=== PATIENT | male | born 1960 | race Caucasian/White ===

== ENCOUNTER 2020-10-14 09:29 | Inpatient (IN) | payer SELFPAY ==
[2020-10-14 10:51] LABS: #Lymphocytes 0.7 thou/uL (1.20-3.40); #Monocytes 0.3 thou/uL (0.11-0.59); #Neutrophils 9.7 thou/uL (1.40-6.50); %Basophils 0.2 % (0.0-1.0); %Eosinophils 0.1 % (0.0-10.0); %Lymphocytes 6.8 % (21.0-51.0); %Monocytes 3.1 % (0.0-10.0); %Neutrophils 89.8 % (42.0-75.0); Hemoglobin 13.3 g/dL (14.0-18.0); Mean Corpuscular HGB CONC 34.7 g/dL (32.0-36.0); Mean Corpuscular Hemoglobin 30.8 pg (27.0-31.0); Mean Corpuscular Volume 88.6 fL (78.0-98.0); Mean Platelet Volume 8.3 fL (7.4-10.4); Platelet Count 268 thou/uL (130-400); RBC Distribution Width 13.4 % (11.5-14.5); Red Blood Cell (RBC) Count 4.31 mill/uL (4.70-6.10); White Blood Cell (WBC) Count 10.8 thou/uL (4.8-10.8)
[2020-10-14 11:14] LABS: ALT (SGPT) 24 U/L (8-55); AST (SGOT) 64 U/L (5-34); Albumin 3.7 g/dL (3.5-5.0); Alkaline Phosphatase 55 U/L (40-110); Anion Gap 14 mmol/L (10-20); BUN (Urea Nitrogen) 24 mg/dL (8.4-25.7); Bilirubin, Total 0.5 mg/dL (0.2-1.2); Calc. Creatinine Clearance 0 mL/min (70-130); Calcium 9.3 mg/dL (7.8-10.44); Carbon Dioxide 22 mmol/L (22-29); Chloride 107 mmol/L (98-107); Globulin 3.6 g/dL (2.4-3.5); Glucose 147 mg/dL (70-105); Magnesium 2.4 mg/dL (1.6-2.6); Potassium 4.3 mmol/L (3.5-5.1); Protein, Total 7.3 g/dL (6.0-8.3); Sodium 139 mmol/L (136-145)
[2020-10-14] MEDS ORDERED: Dexamethasone 10 MG/ML VIAL ONE (11:51)
[2020-10-14 12:07] LABS: Analyzer IN Cardio ER; Base Excess (BEa) -2.3 mEq/L (-2.0 to +3.0); CO2 Tension 28.3 mmHg (35.0-45.0); Calcium, Ionized (arterial) 1.23 mmol/L (1.12-1.30); Carboxyhemoglobin (COHb) 0.3 gm% (0.0-3.0); Potassium - ABG Lab 4.01 mmol/L (3.70-5.30); pH, Arterial 7.47 (7.35-7.45)
[2020-10-14 12:12] LABS: ALV-art Gradient 408.725 mmHg (0-20); Puncture Site LRA
[2020-10-14] MEDS ORDERED: Ondansetron PF 4 MG/2 ML Vial IVP PRN (14:33)
[2020-10-14] MEDS ORDERED: Acetaminophen 650 MG Suppository PR PRN (14:33)
[2020-10-14] MEDS ORDERED: Ondansetron ODT 4 MG TAB PO PRN (14:33)
[2020-10-14] MEDS ORDERED: Acetaminophen 325 MG TAB PO PRN (14:33)
[2020-10-14] MEDS ORDERED: Melatonin 3 MG TAB PO PRN (14:37)
[2020-10-14] MEDS ORDERED: REMDESIVIR 200 MG in Sodium Chloride 0.9% 250 ML 210 ML IV SCH (14:45)
[2020-10-14] MEDS ORDERED: Albuterol 200 PUFF (6.7GM INHALER) ONE (15:07)
[2020-10-14] MEDS: Albuterol 200 PUFF (6.7GM INHALER) INH SCH ×3 (15:17→22:35)
[2020-10-14] MEDS ORDERED: Electrolyte Replacement Protocol 1 EACH FS SCH (20:15)
[2020-10-14] MEDS ORDERED: Zinc Sulfate 220 MG CAP PO SCH (21:00)
[2020-10-14] MEDS ORDERED: Enoxaparin Sodium 40 MG/0.4 ML SYRINGE SC SCH (21:00)
[2020-10-14] MEDS ORDERED: Ascorbic Acid 500 mg Chewable Tablet PO SCH (21:00)
[2020-10-14] MEDS ORDERED: Colchicine 0.6 MG TAB PO SCH (21:00)
[2020-10-14] MEDS ORDERED: Fenofibrate Nanocrystallized 145 MG TAB PO SCH (21:00)
[2020-10-14] MEDS ORDERED: Multivit, Therapeutic 1 TAB PO SCH (21:00)
[2020-10-14] MEDS ORDERED: Amlodipine 5 MG TAB PO SCH (21:00)
[2020-10-14] MEDS ORDERED: REMDESIVIR 100 MG in Sodium Chloride 0.9% 250 ML 230 ML IV SCH (22:00)
[2020-10-14] MEDS: Famotidine 20 MG TAB PO SCH (22:34)
[2020-10-14] MEDS: Atorvastatin Calcium 40 MG TAB PO SCH (22:35)
[2020-10-15] MEDS: Albuterol 200 PUFF (6.7GM INHALER) INH SCH ×6 (02:52→20:17)
[2020-10-15 05:19] LABS: #Monocytes 0.8 thou/uL (0.11-0.59); #Neutrophils 16.7 thou/uL (1.40-6.50); %Lymphocytes 5.3 % (21.0-51.0); %Monocytes 4.4 % (0.0-10.0); %Neutrophils 90.3 % (42.0-75.0); Hemoglobin 12.8 g/dL (14.0-18.0); Mean Corpuscular HGB CONC 32.1 g/dL (32.0-36.0); Mean Corpuscular Hemoglobin 28.8 pg (27.0-31.0); Mean Corpuscular Volume 89.7 fL (78.0-98.0); Mean Platelet Volume 8.1 fL (7.4-10.4); Platelet Count 322 thou/uL (130-400); RBC Distribution Width 13.5 % (11.5-14.5); Red Blood Cell (RBC) Count 4.45 mill/uL (4.70-6.10); White Blood Cell (WBC) Count 18.5 thou/uL (4.8-10.8)
[2020-10-15 05:41] LABS: Anion Gap 14 mmol/L (10-20); BUN (Urea Nitrogen) 31 mg/dL (8.4-25.7); Calc. Creatinine Clearance 93 mL/min (70-130); Calcium 9.5 mg/dL (7.8-10.44); Carbon Dioxide 23 mmol/L (22-29); Chloride 106 mmol/L (98-107); Glucose 144 mg/dL (70-105); Potassium 4.2 mmol/L (3.5-5.1); Sodium 139 mmol/L (136-145)
[2020-10-15] MEDS ORDERED: hydrALAZINE 20 MG/ML VIAL SLOW IVP PRN (07:56)
[2020-10-15] MEDS ORDERED: Hydrocerin (Eucerin) Cream 120 gm Jar TOP PRN (07:56)
[2020-10-15] MEDS ORDERED: Senokot S 8.6-50 MG TAB PO PRN (07:56)
[2020-10-15] MEDS ORDERED: Cepastat Lozenges 1 LOZ PO PRN (07:56)
[2020-10-15] MEDS ORDERED: Loperamide HCl 2 MG CAP PO PRN (07:56)
[2020-10-15] MEDS ORDERED: Bisacodyl 5 MG TAB PO PRN (07:56)
[2020-10-15] MEDS ORDERED: HYDROcodone/Acetaminophen 5/325 mg Tablet PO PRN (07:56)
[2020-10-15] MEDS ORDERED: Calcium Carbonate 500 MG ChewTAB PO PRN (07:56)
[2020-10-15] MEDS ORDERED: Loratadine 10 MG TAB PO PRN (07:56)
[2020-10-15] MEDS ORDERED: Artificial Tear Sol 15 ML BOT EA EYE PRN (07:56)
[2020-10-15] MEDS ORDERED: Sodium Chloride 0.65% Nasal 44 ML BOT EA NARE PRN (07:56)
[2020-10-15] MEDS ORDERED: Dexamethasone 4 MG TAB PO SCH (08:00)
[2020-10-15] MEDS ORDERED: Dexamethasone 4 mg/ml Vial SLOW IVP SCH (09:00)
[2020-10-15] MEDS: Fenofibrate Nanocrystallized 145 MG TAB PO SCH (09:05)
[2020-10-15] MEDS: Ascorbic Acid 500 mg Chewable Tablet PO SCH (09:05)
[2020-10-15] MEDS: Multivit, Therapeutic 1 TAB PO SCH (09:06)
[2020-10-15] MEDS: Famotidine 20 MG TAB PO SCH ×2 (09:06→20:09)
[2020-10-15] MEDS: PHOS-NAK 1 PKT PACK PO SCH ×2 (09:06→12:38)
[2020-10-15] MEDS: Colchicine 0.6 MG TAB PO SCH (09:06)
[2020-10-15] MEDS: Zinc Sulfate 220 MG CAP PO SCH (09:07)
[2020-10-15] MEDS: Amlodipine 5 MG TAB PO SCH (09:07)
[2020-10-15] MEDS: Ivermectin 3 MG TAB PO SCH (12:41)
[2020-10-15] MEDS: Enoxaparin Sodium 40 MG/0.4 ML SYRINGE SC SCH (20:08)
[2020-10-15] MEDS: Atorvastatin Calcium 40 MG TAB PO SCH (20:09)
[2020-10-15] MEDS: Dexamethasone 4 mg/ml Vial SLOW IVP SCH (20:10)
[2020-10-16] MEDS: Albuterol 200 PUFF (6.7GM INHALER) INH SCH ×6 (02:47→22:49)
[2020-10-16 05:42] LABS: Band 12 % (5-11); Hemoglobin 12.8 g/dL (14.0-18.0); Hypochromia SLIGHT = 6-15 cells (100X) (0-5/hpf); Lymphocytes 6 % (21-51); MDiff Complete? YES; Mean Corpuscular HGB CONC 33.4 g/dL (32.0-36.0); Mean Corpuscular Hemoglobin 29.8 pg (27.0-31.0); Mean Corpuscular Volume 89.3 fL (78.0-98.0); Mean Platelet Volume 7.8 fL (7.4-10.4); Monocytes 8 % (0-10); Neutrophil 74 % (42-75); Platelet Count 384 thou/uL (130-400); Platelet Morphology Comment Appears Adequate; RBC Distribution Width 13.5 % (11.5-14.5); Red Blood Cell (RBC) Count 4.28 mill/uL (4.70-6.10); White Blood Cell (WBC) Count 19.4 thou/uL (4.8-10.8)
[2020-10-16 05:51] LABS: Anion Gap 12 mmol/L (10-20); BUN (Urea Nitrogen) 30 mg/dL (8.4-25.7); CRP (Inflammatory) 1.55 mg/dL (= or < 0.5); Calc. Creatinine Clearance 98 mL/min (70-130); Calcium 9.1 mg/dL (7.8-10.44); Carbon Dioxide 28 mmol/L (22-29); Chloride 106 mmol/L (98-107); Glucose 123 mg/dL (70-105); Potassium 4.3 mmol/L (3.5-5.1); Sodium 142 mmol/L (136-145)
[2020-10-16] MEDS: Fenofibrate Nanocrystallized 145 MG TAB PO SCH (07:42)
[2020-10-16] MEDS: Enoxaparin Sodium 40 MG/0.4 ML SYRINGE SC SCH ×2 (07:43→19:47)
[2020-10-16] MEDS: Ascorbic Acid 500 mg Chewable Tablet PO SCH (07:43)
[2020-10-16] MEDS: Amlodipine 5 MG TAB PO SCH (07:44)
[2020-10-16] MEDS: Colchicine 0.6 MG TAB PO SCH (07:44)
[2020-10-16] MEDS: Multivit, Therapeutic 1 TAB PO SCH (07:44)
[2020-10-16] MEDS: Famotidine 20 MG TAB PO SCH ×2 (07:44→19:47)
[2020-10-16] MEDS: Dexamethasone 4 mg/ml Vial SLOW IVP SCH ×2 (07:45→19:48)
[2020-10-16] MEDS: Zinc Sulfate 220 MG CAP PO SCH (07:45)
[2020-10-16] MEDS: Ivermectin 3 MG TAB PO SCH (11:20)
[2020-10-16] MEDS: Atorvastatin Calcium 40 MG TAB PO SCH (19:48)
[2020-10-17] MEDS: Albuterol 200 PUFF (6.7GM INHALER) INH SCH ×5 (04:14→17:36)
[2020-10-17 05:34] LABS: Hemoglobin 12.8 g/dL (14.0-18.0); Mean Corpuscular HGB CONC 33.5 g/dL (32.0-36.0); Mean Corpuscular Hemoglobin 29.9 pg (27.0-31.0); Mean Corpuscular Volume 89.3 fL (78.0-98.0); Mean Platelet Volume 7.7 fL (7.4-10.4); Platelet Count 398 thou/uL (130-400); RBC Distribution Width 13.5 % (11.5-14.5); Red Blood Cell (RBC) Count 4.29 mill/uL (4.70-6.10); White Blood Cell (WBC) Count 18.8 thou/uL (4.8-10.8)
[2020-10-17 05:44] LABS: Anion Gap 11 mmol/L (10-20); BUN (Urea Nitrogen) 31 mg/dL (8.4-25.7); CRP (Inflammatory) 0.65 mg/dL (= or < 0.5); Calc. Creatinine Clearance 116 mL/min (70-130); Calcium 8.8 mg/dL (7.8-10.44); Carbon Dioxide 26 mmol/L (22-29); Chloride 108 mmol/L (98-107); Glucose 128 mg/dL (70-105); Potassium 4.5 mmol/L (3.5-5.1); Sodium 140 mmol/L (136-145)
[2020-10-17 08:01] LABS: Band 6 % (5-11); Lymphocytes 5 % (21-51); Monocytes 3 % (0-10); Myelocyte 1 % (0-0); Neutrophil 83 % (42-75); Reactive Lymphocytes 2 % (0-10)
[2020-10-17 08:02] LABS: MDiff Complete? YES; Nucleated RBC 1 % (0); Platelet Morphology Comment Appears Adequate
[2020-10-17] MEDS: Famotidine 20 MG TAB PO SCH ×2 (08:43→20:37)
[2020-10-17] MEDS: Amlodipine 5 MG TAB PO SCH (08:43)
[2020-10-17] MEDS: Multivit, Therapeutic 1 TAB PO SCH (08:43)
[2020-10-17] MEDS: Enoxaparin Sodium 40 MG/0.4 ML SYRINGE SC SCH ×2 (08:43→20:37)
[2020-10-17] MEDS: Fenofibrate Nanocrystallized 145 MG TAB PO SCH (08:43)
[2020-10-17] MEDS: Zinc Sulfate 220 MG CAP PO SCH (08:43)
[2020-10-17] MEDS: Ascorbic Acid 500 mg Chewable Tablet PO SCH (08:43)
[2020-10-17] MEDS: Colchicine 0.6 MG TAB PO SCH (08:55)
[2020-10-17] MEDS: Dexamethasone 4 mg/ml Vial SLOW IVP SCH ×2 (08:56→20:38)
[2020-10-17] MEDS: Ivermectin 3 MG TAB PO SCH (11:37)
[2020-10-17] MEDS: Atorvastatin Calcium 40 MG TAB PO SCH (20:37)
[2020-10-18] MEDS: Albuterol 200 PUFF (6.7GM INHALER) INH SCH ×7 (00:26→23:00)
[2020-10-18] MEDS: Famotidine 20 MG TAB PO SCH ×2 (08:09→20:31)
[2020-10-18] MEDS: Multivit, Therapeutic 1 TAB PO SCH (08:09)
[2020-10-18] MEDS: Fenofibrate Nanocrystallized 145 MG TAB PO SCH (08:09)
[2020-10-18] MEDS: Zinc Sulfate 220 MG CAP PO SCH (08:09)
[2020-10-18] MEDS: Amlodipine 5 MG TAB PO SCH (08:09)
[2020-10-18] MEDS: Ascorbic Acid 500 mg Chewable Tablet PO SCH (08:09)
[2020-10-18] MEDS: Colchicine 0.6 MG TAB PO SCH (08:09)
[2020-10-18] MEDS: Dexamethasone 4 mg/ml Vial SLOW IVP SCH ×2 (08:10→20:32)
[2020-10-18] MEDS: Enoxaparin Sodium 40 MG/0.4 ML SYRINGE SC SCH ×2 (08:10→20:31)
[2020-10-18] MEDS: Ivermectin 3 MG TAB PO SCH (11:28)
[2020-10-18] MEDS: Atorvastatin Calcium 40 MG TAB PO SCH (20:31)
[2020-10-18] MEDS: Albuterol 200 PUFF (6.7GM INHALER) INH PRN (20:31)
[2020-10-19] MEDS: Benzonatate 100 MG CAP PO PRN (04:31)
[2020-10-19] MEDS: GUAIFENESIN SF SOLN 200 MG/10 ML UDCUP PO PRN (04:31)
[2020-10-19] MEDS: Albuterol 200 PUFF (6.7GM INHALER) INH PRN (04:31)
[2020-10-19] MEDS: Albuterol 200 PUFF (6.7GM INHALER) INH SCH ×6 (04:31→21:09)
[2020-10-19] MEDS: Enoxaparin Sodium 40 MG/0.4 ML SYRINGE SC SCH ×2 (07:59→21:09)
[2020-10-19] MEDS: Multivit, Therapeutic 1 TAB PO SCH (07:59)
[2020-10-19] MEDS: Colchicine 0.6 MG TAB PO SCH (07:59)
[2020-10-19] MEDS: Famotidine 20 MG TAB PO SCH ×2 (07:59→21:08)
[2020-10-19] MEDS: Ascorbic Acid 500 mg Chewable Tablet PO SCH (07:59)
[2020-10-19] MEDS: Fenofibrate Nanocrystallized 145 MG TAB PO SCH (07:59)
[2020-10-19] MEDS: Zinc Sulfate 220 MG CAP PO SCH (07:59)
[2020-10-19] MEDS: Amlodipine 5 MG TAB PO SCH (07:59)
[2020-10-19] MEDS: Dexamethasone 4 mg/ml Vial SLOW IVP SCH ×2 (08:00→21:21)
[2020-10-19] MEDS ORDERED: Furosemide 20 MG/2 ML VIAL SLOW IVP SCH (11:53)
[2020-10-19] MEDS: cefTRIAXone\\ROCEPHIN 1 GM in Sodium Chloride 0.9% 100 ML IVPB SCH (12:37)
[2020-10-19] MEDS: Doxycycline 100 MG CAP PO SCH (21:08)
[2020-10-19] MEDS: Atorvastatin Calcium 40 MG TAB PO SCH (21:08)
[2020-10-19] MEDS: Dexamethasone 10 MG/ML VIAL SLOW IVP SCH (22:10)
[2020-10-20] MEDS: Albuterol 200 PUFF (6.7GM INHALER) INH SCH ×6 (05:23→23:05)
[2020-10-20 05:36] LABS: ALT (SGPT) 28 U/L (8-55); AST (SGOT) 34 U/L (5-34); Albumin 3.4 g/dL (3.5-5.0); Alkaline Phosphatase 115 U/L (40-110); Anion Gap 14 mmol/L (10-20); BUN (Urea Nitrogen) 26 mg/dL (8.4-25.7); Bilirubin, Total 0.7 mg/dL (0.2-1.2); CRP (Inflammatory) 0.86 mg/dL (= or < 0.5); Calc. Creatinine Clearance 115 mL/min (70-130); Calcium 9.3 mg/dL (7.8-10.44); Carbon Dioxide 22 mmol/L (22-29); Chloride 106 mmol/L (98-107); Globulin 3.3 g/dL (2.4-3.5); Glucose 127 mg/dL (70-105); Potassium 4.7 mmol/L (3.5-5.1); Protein, Total 6.7 g/dL (6.0-8.3); Sodium 137 mmol/L (136-145)
[2020-10-20 06:50] LABS: Band 16 % (5-11); Hemoglobin 13.9 g/dL (14.0-18.0); Lymphocytes 4 % (21-51); MDiff Complete? YES; Mean Corpuscular HGB CONC 32.5 g/dL (32.0-36.0); Mean Platelet Volume 7.2 fL (7.4-10.4); Neutrophil 79 % (42-75); Platelet Count 373 thou/uL (130-400); RBC Distribution Width 13.7 % (11.5-14.5); Reactive Lymphocytes 1 % (0-10); Red Blood Cell (RBC) Count 4.78 mill/uL (4.70-6.10); White Blood Cell (WBC) Count 20.7 thou/uL (4.8-10.8)
[2020-10-20] MEDS: Multivit, Therapeutic 1 TAB PO SCH (09:41)
[2020-10-20] MEDS: Fenofibrate Nanocrystallized 145 MG TAB PO SCH (09:41)
[2020-10-20] MEDS: Amlodipine 5 MG TAB PO SCH (09:41)
[2020-10-20] MEDS: Ascorbic Acid 500 mg Chewable Tablet PO SCH (09:41)
[2020-10-20] MEDS: Colchicine 0.6 MG TAB PO SCH (09:41)
[2020-10-20] MEDS: Doxycycline 100 MG CAP PO SCH ×2 (09:41→21:12)
[2020-10-20] MEDS: Famotidine 20 MG TAB PO SCH ×2 (09:41→21:12)
[2020-10-20] MEDS: Dexamethasone 10 MG/ML VIAL SLOW IVP SCH ×2 (09:42→21:13)
[2020-10-20] MEDS: Enoxaparin Sodium 40 MG/0.4 ML SYRINGE SC SCH ×2 (09:42→21:12)
[2020-10-20] MEDS: Zinc Sulfate 220 MG CAP PO SCH (09:42)
[2020-10-20] MEDS: cefTRIAXone\\ROCEPHIN 1 GM in Sodium Chloride 0.9% 100 ML IVPB SCH (11:53)
[2020-10-20] MEDS: Albuterol 200 PUFF (6.7GM INHALER) INH PRN (17:30)
[2020-10-20] MEDS: Atorvastatin Calcium 40 MG TAB PO SCH (21:12)
[2020-10-21] MEDS: Albuterol 200 PUFF (6.7GM INHALER) INH SCH ×5 (06:37→20:23)
[2020-10-21] MEDS: Famotidine 20 MG TAB PO SCH ×2 (08:18→20:29)
[2020-10-21] MEDS: Zinc Sulfate 220 MG CAP PO SCH (08:18)
[2020-10-21] MEDS: Multivit, Therapeutic 1 TAB PO SCH (08:18)
[2020-10-21] MEDS: Colchicine 0.6 MG TAB PO SCH (08:18)
[2020-10-21] MEDS: Doxycycline 100 MG CAP PO SCH ×2 (08:18→20:29)
[2020-10-21] MEDS: Enoxaparin Sodium 40 MG/0.4 ML SYRINGE SC SCH ×2 (08:18→20:24)
[2020-10-21] MEDS: Ascorbic Acid 500 mg Chewable Tablet PO SCH (08:18)
[2020-10-21] MEDS: Fenofibrate Nanocrystallized 145 MG TAB PO SCH (08:18)
[2020-10-21] MEDS: Amlodipine 5 MG TAB PO SCH (08:18)
[2020-10-21] MEDS: Dexamethasone 10 MG/ML VIAL SLOW IVP SCH ×2 (08:19→20:25)
[2020-10-21] MEDS: cefTRIAXone\\ROCEPHIN 1 GM in Sodium Chloride 0.9% 100 ML IVPB SCH (12:46)
[2020-10-21] MEDS: Atorvastatin Calcium 40 MG TAB PO SCH (20:29)
[2020-10-22] MEDS: Albuterol 200 PUFF (6.7GM INHALER) INH SCH ×7 (01:19→23:03)
[2020-10-22 05:01] LABS: Hemoglobin 14.1 g/dL (14.0-18.0); Mean Corpuscular HGB CONC 33.2 g/dL (32.0-36.0); Mean Corpuscular Hemoglobin 29.5 pg (27.0-31.0); Mean Corpuscular Volume 88.9 fL (78.0-98.0); Mean Platelet Volume 8.2 fL (7.4-10.4); Platelet Count 261 thou/uL (130-400); RBC Distribution Width 13.5 % (11.5-14.5); Red Blood Cell (RBC) Count 4.79 mill/uL (4.70-6.10); White Blood Cell (WBC) Count 23.6 thou/uL (4.8-10.8)
[2020-10-22 05:10] LABS: Anion Gap 13 mmol/L (10-20); BUN (Urea Nitrogen) 34 mg/dL (8.4-25.7); CRP (Inflammatory) 0.62 mg/dL (= or < 0.5); Calc. Creatinine Clearance 116 mL/min (70-130); Carbon Dioxide 22 mmol/L (22-29); Chloride 106 mmol/L (98-107); Glucose 131 mg/dL (70-105); Potassium 4.7 mmol/L (3.5-5.1); Sodium 136 mmol/L (136-145)
[2020-10-22 06:06] LABS: Band 13 % (5-11); Lymphocytes 3 % (21-51); MDiff Complete? YES; Monocytes 1 % (0-10); Neutrophil 83 % (42-75); Nucleated RBC 1 % (0)
[2020-10-22] MEDS: Ascorbic Acid 500 mg Chewable Tablet PO SCH (08:30)
[2020-10-22] MEDS: Multivit, Therapeutic 1 TAB PO SCH (08:31)
[2020-10-22] MEDS: Famotidine 20 MG TAB PO SCH ×2 (08:31→21:20)
[2020-10-22] MEDS: Fenofibrate Nanocrystallized 145 MG TAB PO SCH (08:31)
[2020-10-22] MEDS: Doxycycline 100 MG CAP PO SCH ×2 (08:31→21:19)
[2020-10-22] MEDS: Dexamethasone 10 MG/ML VIAL SLOW IVP SCH ×2 (08:32→21:56)
[2020-10-22] MEDS: Amlodipine 5 MG TAB PO SCH (08:32)
[2020-10-22] MEDS: Zinc Sulfate 220 MG CAP PO SCH (08:32)
[2020-10-22] MEDS: Enoxaparin Sodium 40 MG/0.4 ML SYRINGE SC SCH ×2 (08:32→21:19)
[2020-10-22] MEDS: Colchicine 0.6 MG TAB PO SCH (08:32)
[2020-10-22] MEDS ORDERED: ALPRAZolam 0.25 MG TAB PO PRN (12:37)
[2020-10-22] MEDS: cefTRIAXone\\ROCEPHIN 1 GM in Sodium Chloride 0.9% 100 ML IVPB SCH (13:29)
[2020-10-22] MEDS: ALPRAZolam 0.25 MG TAB PO PRN (21:20)
[2020-10-23] MEDS: Albuterol 200 PUFF (6.7GM INHALER) INH SCH ×6 (03:21→23:32)
[2020-10-23 06:33] LABS: Hemoglobin 14.9 g/dL (14.0-18.0); Mean Corpuscular Hemoglobin 30.1 pg (27.0-31.0); Mean Corpuscular Volume 88.6 fL (78.0-98.0); Mean Platelet Volume 8.4 fL (7.4-10.4); Platelet Count 227 thou/uL (130-400); RBC Distribution Width 13.5 % (11.5-14.5); Red Blood Cell (RBC) Count 4.93 mill/uL (4.70-6.10); White Blood Cell (WBC) Count 23.7 thou/uL (4.8-10.8)
[2020-10-23 06:51] LABS: Anion Gap 12 mmol/L (10-20); BUN (Urea Nitrogen) 34 mg/dL (8.4-25.7); Calc. Creatinine Clearance 123 mL/min (70-130); Calcium 9.1 mg/dL (7.8-10.44); Carbon Dioxide 24 mmol/L (22-29); Chloride 106 mmol/L (98-107); Glucose 102 mg/dL (70-105); Magnesium 2.4 mg/dL (1.6-2.6); Phosphorus 3.6 mg/dL (2.3-4.7); Potassium 4.6 mmol/L (3.5-5.1); Sodium 137 mmol/L (136-145)
[2020-10-23 07:09] LABS: Band 8 % (5-11); Lymphocytes 5 % (21-51); MDiff Complete? YES; Monocytes 1 % (0-10); Neutrophil 85 % (42-75); Platelet Morphology Comment Appears Adequate; RBC Morphology Normal; Reactive Lymphocytes 1 % (0-10)
[2020-10-23] MEDS: Famotidine 20 MG TAB PO SCH ×2 (08:00→20:40)
[2020-10-23] MEDS: Doxycycline 100 MG CAP PO SCH ×2 (08:00→20:59)
[2020-10-23] MEDS: Ascorbic Acid 500 mg Chewable Tablet PO SCH (08:00)
[2020-10-23] MEDS: Fenofibrate Nanocrystallized 145 MG TAB PO SCH (08:00)
[2020-10-23] MEDS: Multivit, Therapeutic 1 TAB PO SCH (08:01)
[2020-10-23] MEDS: Zinc Sulfate 220 MG CAP PO SCH (08:01)
[2020-10-23] MEDS: Enoxaparin Sodium 40 MG/0.4 ML SYRINGE SC SCH ×2 (08:01→20:39)
[2020-10-23] MEDS: Colchicine 0.6 MG TAB PO SCH (08:01)
[2020-10-23] MEDS: Dexamethasone 10 MG/ML VIAL SLOW IVP SCH ×2 (08:02→20:39)
[2020-10-23] MEDS: Amlodipine 5 MG TAB PO SCH (08:02)
[2020-10-23] MEDS: cefTRIAXone\\ROCEPHIN 1 GM in Sodium Chloride 0.9% 100 ML IVPB SCH (11:49)
[2020-10-23] MEDS: ALPRAZolam 0.25 MG TAB PO PRN (20:38)
[2020-10-23] MEDS: Atorvastatin Calcium 40 MG TAB PO SCH (20:39)
[2020-10-24] MEDS: Albuterol 200 PUFF (6.7GM INHALER) INH SCH ×5 (02:44→19:19)
[2020-10-24 04:17] LABS: Anion Gap 14 mmol/L (10-20); BUN (Urea Nitrogen) 32 mg/dL (8.4-25.7); Calc. Creatinine Clearance 119 mL/min (70-130); Calcium 9.1 mg/dL (7.8-10.44); Carbon Dioxide 21 mmol/L (22-29); Chloride 105 mmol/L (98-107); Glucose 114 mg/dL (70-105); Potassium 4.6 mmol/L (3.5-5.1); Sodium 135 mmol/L (136-145)
[2020-10-24 04:53] LABS: Band 3 % (5-11); Hemoglobin 14.3 g/dL (14.0-18.0); Lymphocytes 2 % (21-51); MDiff Complete? YES; Mean Corpuscular HGB CONC 34.3 g/dL (32.0-36.0); Mean Corpuscular Hemoglobin 30.5 pg (27.0-31.0); Mean Corpuscular Volume 88.7 fL (78.0-98.0); Mean Platelet Volume 8.7 fL (7.4-10.4); Monocytes 1 % (0-10); Myelocyte 1 % (0-0); Neutrophil 93 % (42-75); Platelet Count 239 thou/uL (130-400); Platelet Morphology Comment Appears Adequate; RBC Distribution Width 13.7 % (11.5-14.5); RBC Morphology Normal; Red Blood Cell (RBC) Count 4.68 mill/uL (4.70-6.10); White Blood Cell (WBC) Count 25.4 thou/uL (4.8-10.8)
[2020-10-24] MEDS: Fenofibrate Nanocrystallized 145 MG TAB PO SCH (07:30)
[2020-10-24] MEDS: Doxycycline 100 MG CAP PO SCH ×2 (07:31→21:34)
[2020-10-24] MEDS: Multivit, Therapeutic 1 TAB PO SCH (07:31)
[2020-10-24] MEDS: Ascorbic Acid 500 mg Chewable Tablet PO SCH (07:31)
[2020-10-24] MEDS: Colchicine 0.6 MG TAB PO SCH (07:32)
[2020-10-24] MEDS: Amlodipine 5 MG TAB PO SCH (07:32)
[2020-10-24] MEDS: Enoxaparin Sodium 40 MG/0.4 ML SYRINGE SC SCH ×2 (07:32→21:33)
[2020-10-24] MEDS: Dexamethasone 10 MG/ML VIAL SLOW IVP SCH ×2 (07:33→21:34)
[2020-10-24] MEDS: Zinc Sulfate 220 MG CAP PO SCH (07:33)
[2020-10-24] MEDS: Famotidine 20 MG TAB PO SCH ×2 (07:33→21:34)
[2020-10-24] MEDS: cefTRIAXone\\ROCEPHIN 1 GM in Sodium Chloride 0.9% 100 ML IVPB SCH (10:51)
[2020-10-24] MEDS: Atorvastatin Calcium 40 MG TAB PO SCH (21:34)
[2020-10-25] MEDS: Albuterol 200 PUFF (6.7GM INHALER) INH SCH ×7 (00:26→21:59)
[2020-10-25 03:52] LABS: Anion Gap 15 mmol/L (10-20); BUN (Urea Nitrogen) 36 mg/dL (8.4-25.7); CRP (Inflammatory) Less than 0.50 mg/dL (= or < 0.5); Calc. Creatinine Clearance 123 mL/min (70-130); Carbon Dioxide 18 mmol/L (22-29); Chloride 106 mmol/L (98-107); Glucose 114 mg/dL (70-105); Potassium 4.7 mmol/L (3.5-5.1); Sodium 134 mmol/L (136-145)
[2020-10-25 04:01] LABS: Band 7 % (5-11); Hemoglobin 14.3 g/dL (14.0-18.0); Lymphocytes 7 % (21-51); MDiff Complete? YES; Mean Corpuscular HGB CONC 34.2 g/dL (32.0-36.0); Mean Corpuscular Hemoglobin 30.3 pg (27.0-31.0); Mean Corpuscular Volume 88.5 fL (78.0-98.0); Mean Platelet Volume 8.9 fL (7.4-10.4); Monocytes 7 % (0-10); Neutrophil 79 % (42-75); Platelet Count 238 thou/uL (130-400); Platelet Morphology Comment Appears Adequate; RBC Distribution Width 13.7 % (11.5-14.5); RBC Morphology Normal; Red Blood Cell (RBC) Count 4.72 mill/uL (4.70-6.10)
[2020-10-25] MEDS: Zinc Sulfate 220 MG CAP PO SCH (09:02)
[2020-10-25] MEDS: Multivit, Therapeutic 1 TAB PO SCH (09:03)
[2020-10-25] MEDS: Ascorbic Acid 500 mg Chewable Tablet PO SCH (09:03)
[2020-10-25] MEDS: Dexamethasone 10 MG/ML VIAL SLOW IVP SCH ×2 (09:03→19:52)
[2020-10-25] MEDS: Colchicine 0.6 MG TAB PO SCH (09:03)
[2020-10-25] MEDS: Amlodipine 5 MG TAB PO SCH (09:03)
[2020-10-25] MEDS: Enoxaparin Sodium 40 MG/0.4 ML SYRINGE SC SCH ×2 (09:03→19:51)
[2020-10-25] MEDS: Doxycycline 100 MG CAP PO SCH ×2 (09:03→19:52)
[2020-10-25] MEDS: Famotidine 20 MG TAB PO SCH ×2 (09:03→19:51)
[2020-10-25] MEDS: Fenofibrate Nanocrystallized 145 MG TAB PO SCH (09:03)
[2020-10-25] MEDS: cefTRIAXone\\ROCEPHIN 1 GM in Sodium Chloride 0.9% 100 ML IVPB SCH (11:50)
[2020-10-25] MEDS: Atorvastatin Calcium 40 MG TAB PO SCH (19:52)
[2020-10-26] MEDS: Albuterol 200 PUFF (6.7GM INHALER) INH SCH ×6 (01:33→22:13)
[2020-10-26] MEDS: Amlodipine 5 MG TAB PO SCH (08:50)
[2020-10-26] MEDS: Zinc Sulfate 220 MG CAP PO SCH (08:50)
[2020-10-26] MEDS: Enoxaparin Sodium 40 MG/0.4 ML SYRINGE SC SCH ×2 (08:50→20:00)
[2020-10-26] MEDS: Famotidine 20 MG TAB PO SCH ×2 (08:50→20:00)
[2020-10-26] MEDS: Ascorbic Acid 500 mg Chewable Tablet PO SCH (08:50)
[2020-10-26] MEDS: Multivit, Therapeutic 1 TAB PO SCH (08:50)
[2020-10-26] MEDS: Fenofibrate Nanocrystallized 145 MG TAB PO SCH (08:53)
[2020-10-26] MEDS: Colchicine 0.6 MG TAB PO SCH (08:53)
[2020-10-26] MEDS: Doxycycline 100 MG CAP PO SCH (08:53)
[2020-10-26] MEDS: Dexamethasone 10 MG/ML VIAL SLOW IVP SCH ×2 (09:29→20:00)
[2020-10-26] MEDS: Atorvastatin Calcium 40 MG TAB PO SCH (20:00)
[2020-10-26] MEDS: Benzonatate 100 MG CAP PO PRN (23:17)
[2020-10-27] MEDS: Albuterol 200 PUFF (6.7GM INHALER) INH SCH ×6 (02:07→21:54)
[2020-10-27] MEDS: Amlodipine 5 MG TAB PO SCH (08:56)
[2020-10-27] MEDS: Ascorbic Acid 500 mg Chewable Tablet PO SCH (08:57)
[2020-10-27] MEDS: Dexamethasone 10 MG/ML VIAL SLOW IVP SCH (08:57)
[2020-10-27] MEDS: Famotidine 20 MG TAB PO SCH ×2 (08:58→21:24)
[2020-10-27] MEDS: Zinc Sulfate 220 MG CAP PO SCH (08:58)
[2020-10-27] MEDS: Multivit, Therapeutic 1 TAB PO SCH (08:58)
[2020-10-27] MEDS: Fenofibrate Nanocrystallized 145 MG TAB PO SCH (08:58)
[2020-10-27] MEDS: Enoxaparin Sodium 40 MG/0.4 ML SYRINGE SC SCH ×2 (08:58→21:24)
[2020-10-27] MEDS: Atorvastatin Calcium 40 MG TAB PO SCH (21:24)
[2020-10-27] MEDS: ALPRAZolam 0.25 MG TAB PO PRN (21:25)
[2020-10-27] MEDS: Doxepin HCl 10 MG CAP PO PRN (21:27)
[2020-10-28] MEDS: Albuterol 200 PUFF (6.7GM INHALER) INH SCH ×6 (01:43→22:50)
[2020-10-28] MEDS: Ascorbic Acid 500 mg Chewable Tablet PO SCH (09:21)
[2020-10-28] MEDS: Amlodipine 5 MG TAB PO SCH (09:21)
[2020-10-28] MEDS: Dexamethasone 10 MG/ML VIAL SLOW IVP SCH (09:21)
[2020-10-28] MEDS: Multivit, Therapeutic 1 TAB PO SCH (09:22)
[2020-10-28] MEDS: Fenofibrate Nanocrystallized 145 MG TAB PO SCH (09:22)
[2020-10-28] MEDS: Zinc Sulfate 220 MG CAP PO SCH (09:22)
[2020-10-28] MEDS: Famotidine 20 MG TAB PO SCH ×2 (09:22→20:10)
[2020-10-28] MEDS: Enoxaparin Sodium 40 MG/0.4 ML SYRINGE SC SCH ×2 (09:22→20:10)
[2020-10-28] MEDS: Preparation H Ointment 57 gram tube TOP PRN (15:50)
[2020-10-28] MEDS: Atorvastatin Calcium 40 MG TAB PO SCH (20:10)
[2020-10-28] MEDS: ALPRAZolam 0.25 MG TAB PO PRN (20:10)
[2020-10-28] MEDS: Doxepin HCl 10 MG CAP PO PRN (20:35)
[2020-10-29] MEDS: Albuterol 200 PUFF (6.7GM INHALER) INH SCH ×6 (02:32→22:25)
[2020-10-29 04:23] LABS: Anion Gap 13 mmol/L (10-20); BUN (Urea Nitrogen) 25 mg/dL (8.4-25.7); Calc. Creatinine Clearance 121 mL/min (70-130); Calcium 9.4 mg/dL (7.8-10.44); Carbon Dioxide 21 mmol/L (22-29); Chloride 105 mmol/L (98-107); Glucose 126 mg/dL (70-105); Potassium 4.1 mmol/L (3.5-5.1); Sodium 135 mmol/L (136-145)
[2020-10-29 04:30] LABS: Hemoglobin 14.3 g/dL (14.0-18.0); Mean Corpuscular Hemoglobin 29.3 pg (27.0-31.0); Mean Corpuscular Volume 88.7 fL (78.0-98.0); Mean Platelet Volume 8.7 fL (7.4-10.4); Platelet Count 225 thou/uL (130-400); RBC Distribution Width 14.2 % (11.5-14.5); Red Blood Cell (RBC) Count 4.88 mill/uL (4.70-6.10); White Blood Cell (WBC) Count 22.2 thou/uL (4.8-10.8)
[2020-10-29 04:31] LABS: Lymphocytes 6 % (21-51); MDiff Complete? YES; Monocytes 8 % (0-10); Neutrophil 86 % (42-75); Platelet Morphology Comment Appears Adequate; RBC Morphology Normal
[2020-10-29] MEDS: Amlodipine 5 MG TAB PO SCH (08:38)
[2020-10-29] MEDS: Fenofibrate Nanocrystallized 145 MG TAB PO SCH (08:38)
[2020-10-29] MEDS: Ascorbic Acid 500 mg Chewable Tablet PO SCH (08:38)
[2020-10-29] MEDS: Multivit, Therapeutic 1 TAB PO SCH (08:38)
[2020-10-29] MEDS: Dexamethasone 10 MG/ML VIAL SLOW IVP SCH (08:39)
[2020-10-29] MEDS: Famotidine 20 MG TAB PO SCH ×2 (08:39→22:01)
[2020-10-29] MEDS: Enoxaparin Sodium 40 MG/0.4 ML SYRINGE SC SCH ×2 (08:39→21:12)
[2020-10-29] MEDS: Zinc Sulfate 220 MG CAP PO SCH (08:39)
[2020-10-29] MEDS: Atorvastatin Calcium 40 MG TAB PO SCH (21:12)
[2020-10-29] MEDS: ALPRAZolam 0.25 MG TAB PO PRN (21:12)
[2020-10-29] MEDS: Doxepin HCl 10 MG CAP PO PRN (22:33)
[2020-10-30] MEDS: Albuterol 200 PUFF (6.7GM INHALER) INH SCH ×6 (02:31→22:14)
[2020-10-30 04:03] LABS: Hemoglobin 14.9 g/dL (14.0-18.0); Mean Corpuscular HGB CONC 33.4 g/dL (32.0-36.0); Mean Corpuscular Hemoglobin 29.8 pg (27.0-31.0); Mean Corpuscular Volume 89.4 fL (78.0-98.0); Mean Platelet Volume 9.2 fL (7.4-10.4); Platelet Count 193 thou/uL (130-400); RBC Distribution Width 14.6 % (11.5-14.5); White Blood Cell (WBC) Count 21.1 thou/uL (4.8-10.8)
[2020-10-30 04:12] LABS: Anion Gap 11 mmol/L (10-20); BUN (Urea Nitrogen) 25 mg/dL (8.4-25.7); Calc. Creatinine Clearance 129 mL/min (70-130); Calcium 9.1 mg/dL (7.8-10.44); Carbon Dioxide 22 mmol/L (22-29); Chloride 106 mmol/L (98-107); Glucose 131 mg/dL (70-105); Potassium 4.4 mmol/L (3.5-5.1); Sodium 135 mmol/L (136-145)
[2020-10-30 04:47] LABS: Band 5 % (5-11); Lymphocytes 3 % (21-51); MDiff Complete? YES; Monocytes 5 % (0-10); Neutrophil 87 % (42-75); Platelet Morphology Comment Appears Adequate; RBC Morphology Normal
[2020-10-30] MEDS: Fenofibrate Nanocrystallized 145 MG TAB PO SCH (08:48)
[2020-10-30] MEDS: Famotidine 20 MG TAB PO SCH ×2 (08:48→21:38)
[2020-10-30] MEDS: Enoxaparin Sodium 40 MG/0.4 ML SYRINGE SC SCH ×2 (08:48→21:37)
[2020-10-30] MEDS: Ascorbic Acid 500 mg Chewable Tablet PO SCH (08:48)
[2020-10-30] MEDS: Dexamethasone 10 MG/ML VIAL SLOW IVP SCH (08:49)
[2020-10-30] MEDS: Zinc Sulfate 220 MG CAP PO SCH (08:49)
[2020-10-30] MEDS: Multivit, Therapeutic 1 TAB PO SCH (08:49)
[2020-10-30] MEDS: Amlodipine 5 MG TAB PO SCH (08:49)
[2020-10-30] MEDS: Atorvastatin Calcium 40 MG TAB PO SCH (21:37)
[2020-10-30] MEDS: ALPRAZolam 0.25 MG TAB PO PRN (21:38)
[2020-10-30] MEDS: Doxepin HCl 10 MG CAP PO PRN (22:50)
[2020-10-31] MEDS: Albuterol 200 PUFF (6.7GM INHALER) INH SCH ×6 (02:52→23:13)
[2020-10-31 04:21] LABS: Anion Gap 11 mmol/L (10-20); BUN (Urea Nitrogen) 26 mg/dL (8.4-25.7); Calc. Creatinine Clearance 116 mL/min (70-130); Calcium 9.1 mg/dL (7.8-10.44); Carbon Dioxide 22 mmol/L (22-29); Chloride 107 mmol/L (98-107); Glucose 124 mg/dL (70-105); Potassium 4.1 mmol/L (3.5-5.1); Sodium 136 mmol/L (136-145)
[2020-10-31 04:51] LABS: Band 12 % (5-11); Hemoglobin 13.9 g/dL (14.0-18.0); Lymphocytes 2 % (21-51); MDiff Complete? YES; Mean Corpuscular HGB CONC 31.9 g/dL (32.0-36.0); Mean Corpuscular Hemoglobin 28.7 pg (27.0-31.0); Mean Corpuscular Volume 90.1 fL (78.0-98.0); Mean Platelet Volume 8.5 fL (7.4-10.4); Monocytes 3 % (0-10); Neutrophil 83 % (42-75); Platelet Count 208 thou/uL (130-400); RBC Distribution Width 14.5 % (11.5-14.5); Red Blood Cell (RBC) Count 4.85 mill/uL (4.70-6.10); White Blood Cell (WBC) Count 22.1 thou/uL (4.8-10.8)
[2020-10-31] MEDS: Amlodipine 5 MG TAB PO SCH (09:44)
[2020-10-31] MEDS: Zinc Sulfate 220 MG CAP PO SCH (09:44)
[2020-10-31] MEDS: Ascorbic Acid 500 mg Chewable Tablet PO SCH (09:45)
[2020-10-31] MEDS: Enoxaparin Sodium 40 MG/0.4 ML SYRINGE SC SCH ×2 (09:45→20:07)
[2020-10-31] MEDS: Multivit, Therapeutic 1 TAB PO SCH (09:45)
[2020-10-31] MEDS: Famotidine 20 MG TAB PO SCH ×2 (09:45→20:08)
[2020-10-31] MEDS: Dexamethasone 10 MG/ML VIAL SLOW IVP SCH (09:45)
[2020-10-31] MEDS: Fenofibrate Nanocrystallized 145 MG TAB PO SCH (09:47)
[2020-10-31] MEDS: Preparation H Ointment 57 gram tube TOP PRN ×2 (10:15→17:00)
[2020-10-31] MEDS: Atorvastatin Calcium 40 MG TAB PO SCH (20:08)
[2020-10-31] MEDS: Benzonatate 100 MG CAP PO PRN (20:09)
[2020-10-31] MEDS: ALPRAZolam 0.25 MG TAB PO PRN (20:10)
[2020-10-31] MEDS: Doxepin HCl 10 MG CAP PO PRN (20:10)
[2020-11-01] MEDS: Albuterol 200 PUFF (6.7GM INHALER) INH SCH ×5 (02:10→18:47)
[2020-11-01 04:19] LABS: Hemoglobin 14.1 g/dL (14.0-18.0); Mean Corpuscular HGB CONC 33.8 g/dL (32.0-36.0); Mean Corpuscular Hemoglobin 30.4 pg (27.0-31.0); Mean Corpuscular Volume 89.8 fL (78.0-98.0); Mean Platelet Volume 8.6 fL (7.4-10.4); Platelet Count 194 thou/uL (130-400); RBC Distribution Width 14.5 % (11.5-14.5); Red Blood Cell (RBC) Count 4.64 mill/uL (4.70-6.10); White Blood Cell (WBC) Count 23.2 thou/uL (4.8-10.8)
[2020-11-01 04:34] LABS: ALT (SGPT) 37 U/L (8-55); AST (SGOT) 16 U/L (5-34); Albumin 3.1 g/dL (3.5-5.0); Alkaline Phosphatase 93 U/L (40-110); Anion Gap 12 mmol/L (10-20); BUN (Urea Nitrogen) 24 mg/dL (8.4-25.7); Bilirubin, Total 0.4 mg/dL (0.2-1.2); Calc. Creatinine Clearance 111 mL/min (70-130); Calcium 8.9 mg/dL (7.8-10.44); Carbon Dioxide 23 mmol/L (22-29); Chloride 104 mmol/L (98-107); Globulin 3.3 g/dL (2.4-3.5); Glucose 138 mg/dL (70-105); Potassium 4.1 mmol/L (3.5-5.1); Protein, Total 6.4 g/dL (6.0-8.3); Sodium 135 mmol/L (136-145)
[2020-11-01 06:09] LABS: Band 17 % (5-11); Eosinophils 2 % (0-10); Lymphocytes 3 % (21-51); MDiff Complete? YES; Neutrophil 78 % (42-75); Platelet Morphology Comment Appears Adequate
[2020-11-01] MEDS: Multivit, Therapeutic 1 TAB PO SCH (09:36)
[2020-11-01] MEDS: Fenofibrate Nanocrystallized 145 MG TAB PO SCH (09:36)
[2020-11-01] MEDS: Zinc Sulfate 220 MG CAP PO SCH (09:36)
[2020-11-01] MEDS: Ascorbic Acid 500 mg Chewable Tablet PO SCH (09:36)
[2020-11-01] MEDS: Amlodipine 5 MG TAB PO SCH (09:36)
[2020-11-01] MEDS: Enoxaparin Sodium 40 MG/0.4 ML SYRINGE SC SCH ×2 (09:36→20:17)
[2020-11-01] MEDS: Famotidine 20 MG TAB PO SCH ×2 (09:37→20:17)
[2020-11-01] MEDS: Dexamethasone 10 MG/ML VIAL SLOW IVP SCH (09:37)
[2020-11-01] MEDS: guaiFENesin/Codeine 200 mg/20 mg 10 ml Cup PO PRN (20:17)
[2020-11-01] MEDS: ALPRAZolam 0.25 MG TAB PO PRN (20:17)
[2020-11-01] MEDS: Atorvastatin Calcium 40 MG TAB PO SCH (20:17)
[2020-11-01] MEDS: Doxepin HCl 10 MG CAP PO PRN (20:17)
[2020-11-01] MEDS: Benzonatate 100 MG CAP PO PRN (20:17)
[2020-11-02] MEDS: Albuterol 200 PUFF (6.7GM INHALER) INH SCH ×7 (00:12→22:30)
[2020-11-02 04:09] LABS: #Basophils 0.1 thou/uL (0.0-0.2); #Eosinphils 0.7 thou/uL (0.0-0.7); #Lymphocytes 1.2 thou/uL (1.20-3.40); #Monocytes 0.3 thou/uL (0.11-0.59); #Neutrophils 13.2 thou/uL (1.40-6.50); %Basophils 0.4 % (0.0-1.0); %Eosinophils 4.7 % (0.0-10.0); %Lymphocytes 7.5 % (21.0-51.0); %Neutrophils 85.4 % (42.0-75.0); Hemoglobin 14.2 g/dL (14.0-18.0); Mean Corpuscular HGB CONC 32.3 g/dL (32.0-36.0); Mean Corpuscular Hemoglobin 29.3 pg (27.0-31.0); Mean Corpuscular Volume 90.8 fL (78.0-98.0); Mean Platelet Volume 8.7 fL (7.4-10.4); Platelet Count 190 thou/uL (130-400); Red Blood Cell (RBC) Count 4.84 mill/uL (4.70-6.10); White Blood Cell (WBC) Count 15.5 thou/uL (4.8-10.8)
[2020-11-02 04:36] LABS: ALT (SGPT) 37 U/L (8-55); AST (SGOT) 16 U/L (5-34); Albumin 3.1 g/dL (3.5-5.0); Alkaline Phosphatase 92 U/L (40-110); Anion Gap 11 mmol/L (10-20); BUN (Urea Nitrogen) 20 mg/dL (8.4-25.7); Bilirubin, Total 0.5 mg/dL (0.2-1.2); Calc. Creatinine Clearance 110 mL/min (70-130); Calcium 9.3 mg/dL (7.8-10.44); Carbon Dioxide 28 mmol/L (22-29); Chloride 102 mmol/L (98-107); Globulin 3.2 g/dL (2.4-3.5); Glucose 105 mg/dL (70-105); Magnesium 1.9 mg/dL (1.6-2.6); Phosphorus 3.1 mg/dL (2.3-4.7); Potassium 4.1 mmol/L (3.5-5.1); Protein, Total 6.3 g/dL (6.0-8.3); Sodium 137 mmol/L (136-145)
[2020-11-02] MEDS ORDERED: Magnesium 2 GM/50 ML 2 GM in Premix Bag 1 BAG IVPB SCH (06:30)
[2020-11-02] MEDS: Preparation H Ointment 57 gram tube TOP PRN ×2 (07:30→14:20)
[2020-11-02] MEDS: Multivit, Therapeutic 1 TAB PO SCH (09:54)
[2020-11-02] MEDS: Zinc Sulfate 220 MG CAP PO SCH (09:54)
[2020-11-02] MEDS: Famotidine 20 MG TAB PO SCH ×2 (09:54→20:16)
[2020-11-02] MEDS: Amlodipine 5 MG TAB PO SCH (09:54)
[2020-11-02] MEDS: Ascorbic Acid 500 mg Chewable Tablet PO SCH (09:54)
[2020-11-02] MEDS: Enoxaparin Sodium 40 MG/0.4 ML SYRINGE SC SCH ×2 (09:56→20:16)
[2020-11-02] MEDS: Fenofibrate Nanocrystallized 145 MG TAB PO SCH (09:56)
[2020-11-02] MEDS: Dexamethasone 10 MG/ML VIAL SLOW IVP SCH (09:57)
[2020-11-02] MEDS: ALPRAZolam 0.25 MG TAB PO PRN (20:16)
[2020-11-02] MEDS: Benzonatate 100 MG CAP PO PRN (20:16)
[2020-11-02] MEDS: guaiFENesin/Codeine 200 mg/20 mg 10 ml Cup PO PRN (20:16)
[2020-11-02] MEDS: Atorvastatin Calcium 40 MG TAB PO SCH (20:16)
[2020-11-02] MEDS: Doxepin HCl 10 MG CAP PO PRN (20:36)
[2020-11-03] MEDS: Albuterol 200 PUFF (6.7GM INHALER) INH SCH ×6 (03:12→22:17)
[2020-11-03 04:36] LABS: Anion Gap 13 mmol/L (10-20); BUN (Urea Nitrogen) 19 mg/dL (8.4-25.7); Calc. Creatinine Clearance 127 mL/min (70-130); Calcium 9.4 mg/dL (7.8-10.44); Carbon Dioxide 25 mmol/L (22-29); Chloride 102 mmol/L (98-107); Glucose 137 mg/dL (70-105); Potassium 4.6 mmol/L (3.5-5.1); Sodium 135 mmol/L (136-145)
[2020-11-03] MEDS: Ascorbic Acid 500 mg Chewable Tablet PO SCH (08:30)
[2020-11-03] MEDS: Amlodipine 5 MG TAB PO SCH (08:30)
[2020-11-03] MEDS: Benzonatate 100 MG CAP PO PRN ×2 (08:31→22:13)
[2020-11-03] MEDS: Enoxaparin Sodium 40 MG/0.4 ML SYRINGE SC SCH ×2 (08:31→22:13)
[2020-11-03] MEDS: GUAIFENESIN SF SOLN 200 MG/10 ML UDCUP PO PRN ×2 (08:31→22:13)
[2020-11-03] MEDS: Fenofibrate Nanocrystallized 145 MG TAB PO SCH (08:31)
[2020-11-03] MEDS: Multivit, Therapeutic 1 TAB PO SCH (08:31)
[2020-11-03] MEDS: Famotidine 20 MG TAB PO SCH ×2 (08:31→22:13)
[2020-11-03] MEDS: Zinc Sulfate 220 MG CAP PO SCH (08:31)
[2020-11-03] MEDS: Dexamethasone 10 MG/ML VIAL SLOW IVP SCH (08:32)
[2020-11-03] MEDS: Dexamethasone 4 mg/ml Vial SLOW IVP SCH (09:37)
[2020-11-03] MEDS: Atorvastatin Calcium 40 MG TAB PO SCH (22:13)
[2020-11-03] MEDS: ALPRAZolam 0.25 MG TAB PO PRN (22:13)
[2020-11-03] MEDS: Doxepin HCl 10 MG CAP PO PRN (22:13)
[2020-11-04 04:30] LABS: Anion Gap 9 mmol/L (10-20); BUN (Urea Nitrogen) 20 mg/dL (8.4-25.7); Calc. Creatinine Clearance 124 mL/min (70-130); Carbon Dioxide 28 mmol/L (22-29); Chloride 103 mmol/L (98-107); Glucose 163 mg/dL (70-105); Potassium 4.3 mmol/L (3.5-5.1); Sodium 136 mmol/L (136-145)
[2020-11-04] MEDS: Albuterol 200 PUFF (6.7GM INHALER) INH SCH ×4 (05:22→18:17)
[2020-11-04 09:16] LABS: Mean Corpuscular HGB CONC 32.8 g/dL (32.0-36.0); Mean Corpuscular Hemoglobin 29.9 pg (27.0-31.0); Mean Corpuscular Volume 91.3 fL (78.0-98.0); Mean Platelet Volume 8.5 fL (7.4-10.4); Platelet Count 190 thou/uL (130-400); Red Blood Cell (RBC) Count 4.67 mill/uL (4.70-6.10); White Blood Cell (WBC) Count 21.6 thou/uL (4.8-10.8)
[2020-11-04 09:51] LABS: Band 3 % (5-11); Lymphocytes 7 % (21-51); MDiff Complete? YES; Monocytes 7 % (0-10); Neutrophil 83 % (42-75); RBC Morphology Normal
[2020-11-04] MEDS: Dexamethasone 4 mg/ml Vial SLOW IVP SCH (10:02)
[2020-11-04] MEDS: Enoxaparin Sodium 40 MG/0.4 ML SYRINGE SC SCH ×2 (10:02→20:41)
[2020-11-04] MEDS: Fenofibrate Nanocrystallized 145 MG TAB PO SCH (10:03)
[2020-11-04] MEDS: Famotidine 20 MG TAB PO SCH ×2 (10:03→20:41)
[2020-11-04] MEDS: Amlodipine 5 MG TAB PO SCH (10:03)
[2020-11-04] MEDS: Multivit, Therapeutic 1 TAB PO SCH (10:03)
[2020-11-04] MEDS: Ascorbic Acid 500 mg Chewable Tablet PO SCH (10:03)
[2020-11-04] MEDS: Zinc Sulfate 220 MG CAP PO SCH (10:03)
[2020-11-04] MEDS: Atorvastatin Calcium 40 MG TAB PO SCH (20:41)
[2020-11-04] MEDS: ALPRAZolam 0.25 MG TAB PO PRN (20:41)
[2020-11-04] MEDS: Benzonatate 100 MG CAP PO PRN (20:41)
[2020-11-04] MEDS: Doxepin HCl 10 MG CAP PO PRN (20:45)
[2020-11-04] MEDS: GUAIFENESIN SF SOLN 200 MG/10 ML UDCUP PO PRN (20:47)
[2020-11-05] MEDS: Albuterol 200 PUFF (6.7GM INHALER) INH SCH ×7 (00:53→22:41)
[2020-11-05 04:05] LABS: #Eosinphils 0.3 thou/uL (0.0-0.7); #Lymphocytes 1.2 thou/uL (1.20-3.40); #Monocytes 0.6 thou/uL (0.11-0.59); #Neutrophils 15.6 thou/uL (1.40-6.50); %Basophils 0.1 % (0.0-1.0); %Eosinophils 1.6 % (0.0-10.0); %Lymphocytes 6.6 % (21.0-51.0); %Monocytes 3.7 % (0.0-10.0); %Neutrophils 88.1 % (42.0-75.0); Hemoglobin 13.8 g/dL (14.0-18.0); Mean Corpuscular HGB CONC 33.4 g/dL (32.0-36.0); Mean Corpuscular Hemoglobin 30.4 pg (27.0-31.0); Mean Corpuscular Volume 91.3 fL (78.0-98.0); Mean Platelet Volume 8.7 fL (7.4-10.4); Platelet Count 169 thou/uL (130-400); Red Blood Cell (RBC) Count 4.53 mill/uL (4.70-6.10); White Blood Cell (WBC) Count 17.7 thou/uL (4.8-10.8)
[2020-11-05 04:24] LABS: Anion Gap 12 mmol/L (10-20); BUN (Urea Nitrogen) 22 mg/dL (8.4-25.7); Calc. Creatinine Clearance 122 mL/min (70-130); Calcium 9.3 mg/dL (7.8-10.44); Carbon Dioxide 25 mmol/L (22-29); Chloride 105 mmol/L (98-107); Glucose 104 mg/dL (70-105); Potassium 4.1 mmol/L (3.5-5.1); Sodium 138 mmol/L (136-145)
[2020-11-05] MEDS: Multivit, Therapeutic 1 TAB PO SCH (10:15)
[2020-11-05] MEDS: Amlodipine 5 MG TAB PO SCH (10:15)
[2020-11-05] MEDS: Dexamethasone 4 mg/ml Vial SLOW IVP SCH (10:15)
[2020-11-05] MEDS: Fenofibrate Nanocrystallized 145 MG TAB PO SCH (10:15)
[2020-11-05] MEDS: Enoxaparin Sodium 40 MG/0.4 ML SYRINGE SC SCH ×2 (10:15→20:41)
[2020-11-05] MEDS: Ascorbic Acid 500 mg Chewable Tablet PO SCH (10:15)
[2020-11-05] MEDS: Famotidine 20 MG TAB PO SCH ×2 (10:15→20:42)
[2020-11-05] MEDS: Zinc Sulfate 220 MG CAP PO SCH (10:16)
[2020-11-05] MEDS: ALPRAZolam 0.25 MG TAB PO PRN (20:41)
[2020-11-05] MEDS: Benzonatate 100 MG CAP PO PRN (20:42)
[2020-11-05] MEDS: Atorvastatin Calcium 40 MG TAB PO SCH (20:42)
[2020-11-06 04:28] LABS: Anion Gap 11 mmol/L (10-20); BUN (Urea Nitrogen) 24 mg/dL (8.4-25.7); Calc. Creatinine Clearance 111 mL/min (70-130); Calcium 9.6 mg/dL (7.8-10.44); Carbon Dioxide 26 mmol/L (22-29); Chloride 103 mmol/L (98-107); Glucose 109 mg/dL (70-105); Potassium 4.4 mmol/L (3.5-5.1); Sodium 136 mmol/L (136-145)
[2020-11-06] MEDS ORDERED: Morphine 4 MG/ML VIAL ONE ×2 (04:49→05:04)
[2020-11-06] MEDS ORDERED: Morphine 2 MG/ML VIAL SLOW IVP SCH ×2 (04:50→05:15)
[2020-11-06] MEDS ORDERED: Enoxaparin Sodium 100 MG/ML SYRINGE SC SCH (05:45)
[2020-11-06] MEDS: Albuterol 200 PUFF (6.7GM INHALER) INH SCH ×6 (05:59→22:55)
[2020-11-06 06:37] LABS: Hemoglobin 14.2 g/dL (14.0-18.0); Mean Corpuscular Hemoglobin 29.3 pg (27.0-31.0); Mean Corpuscular Volume 91.5 fL (78.0-98.0); Mean Platelet Volume 8.1 fL (7.4-10.4); Platelet Count 184 thou/uL (130-400); RBC Distribution Width 15.1 % (11.5-14.5); Red Blood Cell (RBC) Count 4.86 mill/uL (4.70-6.10); White Blood Cell (WBC) Count 13.5 thou/uL (4.8-10.8)
[2020-11-06 06:59] LABS: Troponin I Less than 0.010 ng/mL (< 0.028)
[2020-11-06 07:36] LABS: #Eosinphils 0.3 thou/uL (0.0-0.7); #Lymphocytes 1.1 thou/uL (1.20-3.40); #Monocytes 0.5 thou/uL (0.11-0.59); #Neutrophils 11.6 thou/uL (1.40-6.50); %Basophils 0.1 % (0.0-1.0); %Eosinophils 2.2 % (0.0-10.0); %Lymphocytes 8.3 % (21.0-51.0); %Monocytes 3.9 % (0.0-10.0); %Neutrophils 85.5 % (42.0-75.0)
[2020-11-06 07:37] LABS: Band 7 % (5-11); Lymphocytes 6 % (21-51); MDiff Complete? YES; Monocytes 3 % (0-10); Neutrophil 84 % (42-75); Platelet Morphology Comment Appears Adequate; RBC Morphology Normal
[2020-11-06] MEDS: Zinc Sulfate 220 MG CAP PO SCH (08:51)
[2020-11-06] MEDS: Dexamethasone 4 mg/ml Vial SLOW IVP SCH (08:51)
[2020-11-06] MEDS: Ascorbic Acid 500 mg Chewable Tablet PO SCH (08:51)
[2020-11-06] MEDS: Amlodipine 5 MG TAB PO SCH (08:51)
[2020-11-06] MEDS: Famotidine 20 MG TAB PO SCH ×2 (08:51→20:48)
[2020-11-06] MEDS: ALPRAZolam 0.25 MG TAB PO PRN ×2 (08:51→20:47)
[2020-11-06] MEDS: Multivit, Therapeutic 1 TAB PO SCH (08:51)
[2020-11-06] MEDS: Fenofibrate Nanocrystallized 145 MG TAB PO SCH (09:03)
[2020-11-06] MEDS ORDERED: Iopamidol-370 76% 500 ML 1 ML ONE (13:19)
[2020-11-06] MEDS: Benzonatate 100 MG CAP PO PRN (20:47)
[2020-11-06] MEDS: Atorvastatin Calcium 40 MG TAB PO SCH (20:48)
[2020-11-06] MEDS: Doxepin HCl 10 MG CAP PO PRN (20:48)
[2020-11-06] MEDS: guaiFENesin/Codeine 200 mg/20 mg 10 ml Cup PO PRN (20:50)
[2020-11-06] MEDS: Enoxaparin Sodium 100 MG/ML SYRINGE SC SCH (20:54)
[2020-11-07] MEDS: Morphine 2 MG/ML VIAL SLOW IVP PRN ×2 (02:21→10:55)
[2020-11-07] MEDS: Albuterol 200 PUFF (6.7GM INHALER) INH SCH ×6 (03:12→22:02)
[2020-11-07 04:12] LABS: Anion Gap 13 mmol/L (10-20); BUN (Urea Nitrogen) 24 mg/dL (8.4-25.7); Calc. Creatinine Clearance 104 mL/min (70-130); Calcium 9.4 mg/dL (7.8-10.44); Carbon Dioxide 25 mmol/L (22-29); Chloride 100 mmol/L (98-107); Glucose 105 mg/dL (70-105); Potassium 4.2 mmol/L (3.5-5.1); Sodium 134 mmol/L (136-145)
[2020-11-07] MEDS ORDERED: Apixaban 5 MG TAB PO SCH (09:00)
[2020-11-07] MEDS: Ascorbic Acid 500 mg Chewable Tablet PO SCH (10:30)
[2020-11-07] MEDS: Zinc Sulfate 220 MG CAP PO SCH (10:30)
[2020-11-07] MEDS: Amlodipine 5 MG TAB PO SCH (10:30)
[2020-11-07] MEDS: Multivit, Therapeutic 1 TAB PO SCH (10:30)
[2020-11-07] MEDS: Dexamethasone 4 mg/ml Vial SLOW IVP SCH ×2 (10:31→12:30)
[2020-11-07] MEDS: Fenofibrate Nanocrystallized 145 MG TAB PO SCH (10:31)
[2020-11-07] MEDS: ALPRAZolam 0.25 MG TAB PO PRN ×2 (11:15→21:20)
[2020-11-07] MEDS: guaiFENesin/Codeine 200 mg/20 mg 10 ml Cup PO PRN ×3 (11:26→21:47)
[2020-11-07] MEDS ORDERED: Morphine 4 MG/ML VIAL ONE (11:53)
[2020-11-07] MEDS: Enoxaparin Sodium 100 MG/ML SYRINGE SC SCH (12:06)
[2020-11-07] MEDS: Famotidine 20 MG TAB PO SCH (12:06)
[2020-11-07 13:05] LABS: Troponin I Less than 0.010 ng/mL (< 0.028)
[2020-11-07] MEDS ORDERED: Ketorolac Tromethamine 60 MG/2 ML VIAL IVP PRN (13:45)
[2020-11-07] MEDS: Ketorolac Tromethamine 30 MG/ML VIAL IVP PRN (16:25)
[2020-11-07] MEDS: Benzonatate 100 MG CAP PO PRN ×2 (16:25→21:47)
[2020-11-07] MEDS: Apixaban 5 MG TAB PO SCH (21:20)
[2020-11-07] MEDS: Atorvastatin Calcium 40 MG TAB PO SCH (21:20)
[2020-11-07] MEDS: Doxepin HCl 10 MG CAP PO PRN (21:49)
[2020-11-08] MEDS: Albuterol 200 PUFF (6.7GM INHALER) INH SCH ×6 (02:37→23:00)
[2020-11-08 03:55] LABS: #Eosinphils 0.3 thou/uL (0.0-0.7); #Lymphocytes 0.8 thou/uL (1.20-3.40); #Monocytes 0.6 thou/uL (0.11-0.59); #Neutrophils 11.2 thou/uL (1.40-6.50); %Basophils 0.1 % (0.0-1.0); %Eosinophils 2.1 % (0.0-10.0); %Lymphocytes 6.3 % (21.0-51.0); %Monocytes 4.9 % (0.0-10.0); %Neutrophils 86.6 % (42.0-75.0); Hemoglobin 13.8 g/dL (14.0-18.0); Mean Corpuscular HGB CONC 34.3 g/dL (32.0-36.0); Mean Corpuscular Hemoglobin 31.4 pg (27.0-31.0); Mean Corpuscular Volume 91.4 fL (78.0-98.0); Mean Platelet Volume 8.2 fL (7.4-10.4); Platelet Count 170 thou/uL (130-400); RBC Distribution Width 15.4 % (11.5-14.5); Red Blood Cell (RBC) Count 4.39 mill/uL (4.70-6.10); White Blood Cell (WBC) Count 12.9 thou/uL (4.8-10.8)
[2020-11-08 04:13] LABS: Anion Gap 9 mmol/L (10-20); BUN (Urea Nitrogen) 30 mg/dL (8.4-25.7); Calc. Creatinine Clearance 111 mL/min (70-130); Calcium 9.9 mg/dL (7.8-10.44); Carbon Dioxide 27 mmol/L (22-29); Chloride 102 mmol/L (98-107); Glucose 115 mg/dL (70-105); Potassium 4.2 mmol/L (3.5-5.1); Sodium 134 mmol/L (136-145)
[2020-11-08] MEDS: guaiFENesin/Codeine 200 mg/20 mg 10 ml Cup PO PRN (07:17)
[2020-11-08] MEDS: Fenofibrate Nanocrystallized 145 MG TAB PO SCH (08:44)
[2020-11-08] MEDS: Apixaban 5 MG TAB PO SCH ×2 (08:44→20:27)
[2020-11-08] MEDS: Amlodipine 5 MG TAB PO SCH (08:44)
[2020-11-08] MEDS: Ascorbic Acid 500 mg Chewable Tablet PO SCH (08:44)
[2020-11-08] MEDS: Multivit, Therapeutic 1 TAB PO SCH (08:44)
[2020-11-08] MEDS: Zinc Sulfate 220 MG CAP PO SCH (08:44)
[2020-11-08] MEDS: Dexamethasone 4 mg/ml Vial SLOW IVP SCH (08:44)
[2020-11-08] MEDS: ALPRAZolam 0.25 MG TAB PO PRN (20:27)
[2020-11-08] MEDS: Atorvastatin Calcium 40 MG TAB PO SCH (20:28)
[2020-11-08] MEDS: Benzonatate 100 MG CAP PO PRN (20:29)
[2020-11-09] MEDS: Albuterol 200 PUFF (6.7GM INHALER) INH SCH ×6 (03:02→23:15)
[2020-11-09 04:06] LABS: #Eosinphils 0.4 thou/uL (0.0-0.7); #Lymphocytes 0.8 thou/uL (1.20-3.40); #Monocytes 0.4 thou/uL (0.11-0.59); #Neutrophils 7.9 thou/uL (1.40-6.50); %Basophils 0.2 % (0.0-1.0); %Eosinophils 4.6 % (0.0-10.0); %Lymphocytes 8.4 % (21.0-51.0); %Monocytes 4.2 % (0.0-10.0); %Neutrophils 82.6 % (42.0-75.0); Hemoglobin 13.4 g/dL (14.0-18.0); Mean Corpuscular HGB CONC 33.4 g/dL (32.0-36.0); Mean Corpuscular Hemoglobin 30.5 pg (27.0-31.0); Mean Corpuscular Volume 91.3 fL (78.0-98.0); Mean Platelet Volume 8.1 fL (7.4-10.4); Platelet Count 186 thou/uL (130-400); RBC Distribution Width 15.2 % (11.5-14.5); Red Blood Cell (RBC) Count 4.38 mill/uL (4.70-6.10); White Blood Cell (WBC) Count 9.6 thou/uL (4.8-10.8)
[2020-11-09 04:28] LABS: Anion Gap 11 mmol/L (10-20); BUN (Urea Nitrogen) 25 mg/dL (8.4-25.7); Calc. Creatinine Clearance 132 mL/min (70-130); Calcium 9.4 mg/dL (7.8-10.44); Carbon Dioxide 24 mmol/L (22-29); Chloride 106 mmol/L (98-107); Glucose 145 mg/dL (70-105); Sodium 137 mmol/L (136-145)
[2020-11-09] MEDS: Multivit, Therapeutic 1 TAB PO SCH (08:22)
[2020-11-09] MEDS: Ascorbic Acid 500 mg Chewable Tablet PO SCH (08:22)
[2020-11-09] MEDS: Apixaban 5 MG TAB PO SCH ×2 (08:22→23:09)
[2020-11-09] MEDS: Zinc Sulfate 220 MG CAP PO SCH (08:22)
[2020-11-09] MEDS: Fenofibrate Nanocrystallized 145 MG TAB PO SCH (08:22)
[2020-11-09] MEDS: Amlodipine 5 MG TAB PO SCH (08:22)
[2020-11-09] MEDS: Dexamethasone 4 mg/ml Vial SLOW IVP SCH (08:23)
[2020-11-09] MEDS: GUAIFENESIN SF SOLN 200 MG/10 ML UDCUP PO PRN (08:38)
[2020-11-09] MEDS: ALPRAZolam 0.25 MG TAB PO PRN (23:10)
[2020-11-09] MEDS: Atorvastatin Calcium 40 MG TAB PO SCH (23:10)
[2020-11-09] MEDS: guaiFENesin/Codeine 200 mg/20 mg 10 ml Cup PO PRN (23:11)
[2020-11-10] MEDS: Albuterol 200 PUFF (6.7GM INHALER) INH SCH ×4 (02:57→15:12)
[2020-11-10 05:01] LABS: #Eosinphils 0.5 thou/uL (0.0-0.7); #Lymphocytes 1.1 thou/uL (1.20-3.40); #Monocytes 0.5 thou/uL (0.11-0.59); #Neutrophils 7.8 thou/uL (1.40-6.50); %Basophils 0.1 % (0.0-1.0); %Lymphocytes 10.9 % (21.0-51.0); %Monocytes 5.4 % (0.0-10.0); %Neutrophils 78.6 % (42.0-75.0); Mean Corpuscular HGB CONC 33.3 g/dL (32.0-36.0); Mean Corpuscular Hemoglobin 30.4 pg (27.0-31.0); Mean Corpuscular Volume 91.1 fL (78.0-98.0); Platelet Count 219 thou/uL (130-400); RBC Distribution Width 15.1 % (11.5-14.5); Red Blood Cell (RBC) Count 4.29 mill/uL (4.70-6.10); White Blood Cell (WBC) Count 9.9 thou/uL (4.8-10.8)
[2020-11-10 05:22] LABS: Anion Gap 8 mmol/L (10-20); BUN (Urea Nitrogen) 24 mg/dL (8.4-25.7); Calc. Creatinine Clearance 132 mL/min (70-130); Calcium 9.5 mg/dL (7.8-10.44); Carbon Dioxide 27 mmol/L (22-29); Chloride 105 mmol/L (98-107); Glucose 132 mg/dL (70-105); Potassium 3.8 mmol/L (3.5-5.1); Sodium 136 mmol/L (136-145)
[2020-11-10] MEDS: guaiFENesin/Codeine 200 mg/20 mg 10 ml Cup PO PRN (06:18)
[2020-11-10] MEDS: Amlodipine 5 MG TAB PO SCH (08:15)
[2020-11-10] MEDS: Dexamethasone 1 MG TAB PO SCH (08:15)
[2020-11-10] MEDS: Apixaban 5 MG TAB PO SCH ×2 (08:16→20:40)
[2020-11-10] MEDS: Multivit, Therapeutic 1 TAB PO SCH (08:17)
[2020-11-10] MEDS: Fenofibrate Nanocrystallized 145 MG TAB PO SCH (08:17)
[2020-11-10] MEDS: Ascorbic Acid 500 mg Chewable Tablet PO SCH (08:17)
[2020-11-10] MEDS: Zinc Sulfate 220 MG CAP PO SCH (08:18)
[2020-11-10] MEDS: Atorvastatin Calcium 40 MG TAB PO SCH (20:39)
[2020-11-10] MEDS: GUAIFENESIN SF SOLN 200 MG/10 ML UDCUP PO PRN (21:30)
[2020-11-11] MEDS: Benzonatate 100 MG CAP PO PRN ×2 (01:20→18:22)
[2020-11-11] MEDS: Albuterol 200 PUFF (6.7GM INHALER) INH SCH ×6 (03:47→22:00)
[2020-11-11 04:39] LABS: #Eosinphils 0.7 thou/uL (0.0-0.7); #Lymphocytes 1.2 thou/uL (1.20-3.40); #Monocytes 0.5 thou/uL (0.11-0.59); #Neutrophils 8.4 thou/uL (1.40-6.50); %Basophils 0.1 % (0.0-1.0); %Eosinophils 6.3 % (0.0-10.0); %Monocytes 4.9 % (0.0-10.0); %Neutrophils 77.7 % (42.0-75.0); Mean Corpuscular HGB CONC 33.3 g/dL (32.0-36.0); Mean Corpuscular Hemoglobin 30.3 pg (27.0-31.0); Mean Corpuscular Volume 91.1 fL (78.0-98.0); Mean Platelet Volume 7.5 fL (7.4-10.4); Platelet Count 248 thou/uL (130-400); RBC Distribution Width 15.3 % (11.5-14.5); Red Blood Cell (RBC) Count 4.63 mill/uL (4.70-6.10); White Blood Cell (WBC) Count 10.7 thou/uL (4.8-10.8)
[2020-11-11 05:04] LABS: Anion Gap 11 mmol/L (10-20); BUN (Urea Nitrogen) 21 mg/dL (8.4-25.7); Calc. Creatinine Clearance 108 mL/min (70-130); Calcium 9.6 mg/dL (7.8-10.44); Carbon Dioxide 28 mmol/L (22-29); Chloride 99 mmol/L (98-107); Glucose 101 mg/dL (70-105); Potassium 4.5 mmol/L (3.5-5.1); Sodium 133 mmol/L (136-145)
[2020-11-11] MEDS: guaiFENesin/Codeine 200 mg/20 mg 10 ml Cup PO PRN ×2 (05:35→22:52)
[2020-11-11] MEDS: ALPRAZolam 0.25 MG TAB PO PRN (05:36)
[2020-11-11] MEDS: Ascorbic Acid 500 mg Chewable Tablet PO SCH (08:32)
[2020-11-11] MEDS: Zinc Sulfate 220 MG CAP PO SCH (08:33)
[2020-11-11] MEDS: Fenofibrate Nanocrystallized 145 MG TAB PO SCH (08:33)
[2020-11-11] MEDS: Multivit, Therapeutic 1 TAB PO SCH (08:33)
[2020-11-11] MEDS: Amlodipine 5 MG TAB PO SCH (08:33)
[2020-11-11] MEDS: Apixaban 5 MG TAB PO SCH ×2 (08:33→21:15)
[2020-11-11] MEDS: Ketorolac Tromethamine 30 MG/ML VIAL IVP PRN ×2 (09:34→18:13)
[2020-11-11] MEDS: Dexamethasone 1 MG TAB PO SCH (09:40)
[2020-11-11 09:43] VITALS: BMI 30.3
[2020-11-11] MEDS: Morphine 2 MG/ML VIAL SLOW IVP PRN (10:04)
[2020-11-11] MEDS: GUAIFENESIN SF SOLN 200 MG/10 ML UDCUP PO PRN (18:16)
[2020-11-11] MEDS: Atorvastatin Calcium 40 MG TAB PO SCH (21:14)
[2020-11-11] MEDS: Doxepin HCl 10 MG CAP PO PRN (21:14)
[2020-11-12] MEDS: Albuterol 200 PUFF (6.7GM INHALER) INH SCH ×6 (02:20→22:42)
[2020-11-12 05:40] LABS: Band 8 % (5-11); Eosinophils 4 % (0-10); Hemoglobin 13.1 g/dL (14.0-18.0); Lymphocytes 11 % (21-51); MDiff Complete? YES; Mean Corpuscular Hemoglobin 29.5 pg (27.0-31.0); Mean Platelet Volume 7.6 fL (7.4-10.4); Metamyelocyte 3 % (0-0); Monocytes 8 % (0-10); Myelocyte 3 % (0-0); Neutrophil 60 % (42-75); Platelet Count 249 thou/uL (130-400); Platelet Morphology Comment Appears Adequate; RBC Distribution Width 15.2 % (11.5-14.5); RBC Morphology Normal; Reactive Lymphocytes 3 % (0-10); Red Blood Cell (RBC) Count 4.45 mill/uL (4.70-6.10); White Blood Cell (WBC) Count 10.2 thou/uL (4.8-10.8)
[2020-11-12] MEDS: Multivit, Therapeutic 1 TAB PO SCH (09:11)
[2020-11-12] MEDS: Amlodipine 5 MG TAB PO SCH (09:11)
[2020-11-12] MEDS: Apixaban 5 MG TAB PO SCH ×2 (09:12→22:32)
[2020-11-12] MEDS: Zinc Sulfate 220 MG CAP PO SCH (09:12)
[2020-11-12] MEDS: Ascorbic Acid 500 mg Chewable Tablet PO SCH (09:12)
[2020-11-12] MEDS: Dexamethasone 1 MG TAB PO SCH (09:13)
[2020-11-12] MEDS: Fenofibrate Nanocrystallized 145 MG TAB PO SCH (09:13)
[2020-11-12] MEDS: Benzonatate 100 MG CAP PO PRN (09:17)
[2020-11-12] MEDS: Morphine 2 MG/ML VIAL SLOW IVP PRN (10:19)
[2020-11-12] MEDS: GUAIFENESIN SF SOLN 200 MG/10 ML UDCUP PO PRN ×3 (10:37→22:06)
[2020-11-12] MEDS: Ketorolac Tromethamine 30 MG/ML VIAL IVP PRN ×2 (12:46→22:11)
[2020-11-12] MEDS ORDERED: Ketorolac Tromethamine 30 MG/ML VIAL IVP PRN ×2 (15:48→15:49)
[2020-11-12] MEDS: Atorvastatin Calcium 40 MG TAB PO SCH (22:06)
[2020-11-12] MEDS: Doxepin HCl 10 MG CAP PO PRN (22:32)
[2020-11-13] MEDS: Albuterol 200 PUFF (6.7GM INHALER) INH SCH ×6 (02:25→22:21)
[2020-11-13] MEDS: GUAIFENESIN SF SOLN 200 MG/10 ML UDCUP PO PRN ×4 (04:35→21:22)
[2020-11-13] MEDS: Amlodipine 5 MG TAB PO SCH (09:49)
[2020-11-13] MEDS: Apixaban 5 MG TAB PO SCH ×2 (09:50→21:23)
[2020-11-13] MEDS: Ascorbic Acid 500 mg Chewable Tablet PO SCH (09:50)
[2020-11-13] MEDS: Zinc Sulfate 220 MG CAP PO SCH (09:50)
[2020-11-13] MEDS: Multivit, Therapeutic 1 TAB PO SCH (09:50)
[2020-11-13] MEDS: Fenofibrate Nanocrystallized 145 MG TAB PO SCH (09:50)
[2020-11-13] MEDS: Dexamethasone 1 MG TAB PO SCH (09:51)
[2020-11-13] MEDS: Ketorolac Tromethamine 30 MG/ML VIAL IVP PRN (21:21)
[2020-11-13] MEDS: Atorvastatin Calcium 40 MG TAB PO SCH (21:23)
[2020-11-13] MEDS: Doxepin HCl 10 MG CAP PO PRN (21:24)
[2020-11-14] MEDS: Albuterol 200 PUFF (6.7GM INHALER) INH SCH ×4 (04:16→18:17)
[2020-11-14] MEDS: guaiFENesin/Codeine 200 mg/20 mg 10 ml Cup PO PRN (04:17)
[2020-11-14] MEDS: Ascorbic Acid 500 mg Chewable Tablet PO SCH (09:27)
[2020-11-14] MEDS: Multivit, Therapeutic 1 TAB PO SCH (09:27)
[2020-11-14] MEDS: Fenofibrate Nanocrystallized 145 MG TAB PO SCH (09:27)
[2020-11-14] MEDS: Zinc Sulfate 220 MG CAP PO SCH (09:27)
[2020-11-14] MEDS: Apixaban 5 MG TAB PO SCH ×2 (09:27→21:01)
[2020-11-14] MEDS: Dexamethasone 1 MG TAB PO SCH (09:27)
[2020-11-14] MEDS: Amlodipine 5 MG TAB PO SCH (09:29)
[2020-11-14] MEDS: GUAIFENESIN SF SOLN 200 MG/10 ML UDCUP PO PRN ×2 (14:20→21:01)
[2020-11-14] MEDS: Morphine 2 MG/ML VIAL SLOW IVP PRN (14:23)
[2020-11-14] MEDS: Atorvastatin Calcium 40 MG TAB PO SCH (21:01)
[2020-11-14] MEDS: Ketorolac Tromethamine 30 MG/ML VIAL IVP PRN (21:02)
[2020-11-14] MEDS: Doxepin HCl 10 MG CAP PO PRN (21:06)
[2020-11-15] MEDS: Albuterol 200 PUFF (6.7GM INHALER) INH SCH ×7 (07:48→22:40)
[2020-11-15] MEDS: Ascorbic Acid 500 mg Chewable Tablet PO SCH (09:23)
[2020-11-15] MEDS: Fenofibrate Nanocrystallized 145 MG TAB PO SCH (09:23)
[2020-11-15] MEDS: Zinc Sulfate 220 MG CAP PO SCH (09:26)
[2020-11-15] MEDS: Amlodipine 5 MG TAB PO SCH (09:26)
[2020-11-15] MEDS: Multivit, Therapeutic 1 TAB PO SCH (09:27)
[2020-11-15] MEDS: GUAIFENESIN SF SOLN 200 MG/10 ML UDCUP PO PRN (09:27)
[2020-11-15] MEDS: Apixaban 5 MG TAB PO SCH ×2 (09:27→21:34)
[2020-11-15] MEDS: Dexamethasone 1 MG TAB PO SCH (09:30)
[2020-11-15] MEDS ORDERED: Benzonatate 100 MG CAP PO SCH (09:41)
[2020-11-15] MEDS: Benzonatate 100 MG CAP PO SCH ×3 (12:50→21:00)
[2020-11-15] MEDS: Morphine 2 MG/ML VIAL SLOW IVP PRN (12:57)
[2020-11-15] MEDS: guaiFENesin/Codeine 200 mg/20 mg 10 ml Cup PO PRN ×2 (16:07→21:36)
[2020-11-15] MEDS: Ketorolac Tromethamine 30 MG/ML VIAL IVP PRN (21:31)
[2020-11-15] MEDS: Atorvastatin Calcium 40 MG TAB PO SCH (21:34)
[2020-11-15] MEDS: Doxepin HCl 10 MG CAP PO PRN (21:39)
[2020-11-16] MEDS: Albuterol 200 PUFF (6.7GM INHALER) INH SCH ×6 (05:26→21:43)
[2020-11-16] MEDS: Ascorbic Acid 500 mg Chewable Tablet PO SCH (08:08)
[2020-11-16] MEDS: guaiFENesin/Codeine 200 mg/20 mg 10 ml Cup PO PRN ×3 (08:08→21:41)
[2020-11-16] MEDS: Fenofibrate Nanocrystallized 145 MG TAB PO SCH (08:08)
[2020-11-16] MEDS: Apixaban 5 MG TAB PO SCH ×2 (08:08→21:41)
[2020-11-16] MEDS: Dexamethasone 1 MG TAB PO SCH (08:09)
[2020-11-16] MEDS: Amlodipine 5 MG TAB PO SCH (08:09)
[2020-11-16] MEDS: Multivit, Therapeutic 1 TAB PO SCH (08:09)
[2020-11-16] MEDS: Zinc Sulfate 220 MG CAP PO SCH (08:09)
[2020-11-16] MEDS ORDERED: Lidocaine 5% Patch TD SCH (11:15)
[2020-11-16] MEDS: Benzonatate 100 MG CAP PO SCH ×2 (16:30→21:42)
[2020-11-16] MEDS: Ketorolac Tromethamine 30 MG/ML VIAL IVP PRN (21:40)
[2020-11-16] MEDS: Atorvastatin Calcium 40 MG TAB PO SCH (21:41)
[2020-11-16] MEDS: Transdermal Patch Removal TOP SCH (21:42)
[2020-11-17] MEDS: Albuterol 200 PUFF (6.7GM INHALER) INH SCH ×6 (02:07→21:12)
[2020-11-17 05:57] LABS: Hemoglobin 12.8 g/dL (14.0-18.0); Mean Corpuscular HGB CONC 31.5 g/dL (32.0-36.0); Mean Corpuscular Hemoglobin 28.9 pg (27.0-31.0); Mean Corpuscular Volume 91.7 fL (78.0-98.0); Mean Platelet Volume 7.4 fL (7.4-10.4); Platelet Count 276 thou/uL (130-400); RBC Distribution Width 15.3 % (11.5-14.5); Red Blood Cell (RBC) Count 4.44 mill/uL (4.70-6.10)
[2020-11-17 06:10] LABS: Anion Gap 11 mmol/L (10-20); BUN (Urea Nitrogen) 25 mg/dL (8.4-25.7); Calc. Creatinine Clearance 126 mL/min (70-130); Calcium 9.1 mg/dL (7.8-10.44); Carbon Dioxide 27 mmol/L (22-29); Chloride 102 mmol/L (98-107); Glucose 82 mg/dL (70-105); Potassium 4.3 mmol/L (3.5-5.1); Sodium 136 mmol/L (136-145)
[2020-11-17 06:40] LABS: Band 18 % (5-11); Eosinophils 1 % (0-10); Lymphocytes 8 % (21-51); MDiff Complete? YES; Metamyelocyte 2 % (0-0); Monocytes 9 % (0-10); Myelocyte 4 % (0-0); Neutrophil 58 % (42-75)
[2020-11-17] MEDS: Zinc Sulfate 220 MG CAP PO SCH (09:42)
[2020-11-17] MEDS: Amlodipine 5 MG TAB PO SCH (09:42)
[2020-11-17] MEDS: Lidocaine 5% Patch TD SCH (09:43)
[2020-11-17] MEDS: Ascorbic Acid 500 mg Chewable Tablet PO SCH (09:43)
[2020-11-17] MEDS: guaiFENesin/Codeine 200 mg/20 mg 10 ml Cup PO PRN ×3 (09:43→18:41)
[2020-11-17] MEDS: Apixaban 5 MG TAB PO SCH ×2 (09:43→21:11)
[2020-11-17] MEDS: Fenofibrate Nanocrystallized 145 MG TAB PO SCH (09:43)
[2020-11-17] MEDS: Benzonatate 100 MG CAP PO SCH ×3 (09:45→21:12)
[2020-11-17] MEDS: Multivit, Therapeutic 1 TAB PO SCH (09:45)
[2020-11-17] MEDS: Dexamethasone 1 MG TAB PO SCH (09:47)
[2020-11-17] MEDS: Guaifenesin DM 100-10/5 ML UDCUP PO SCH ×2 (14:01→21:11)
[2020-11-17] MEDS: Atorvastatin Calcium 40 MG TAB PO SCH (21:11)
[2020-11-17] MEDS: Transdermal Patch Removal TOP SCH (21:12)
[2020-11-18] MEDS: Albuterol 200 PUFF (6.7GM INHALER) INH SCH ×6 (03:23→21:37)
[2020-11-18] MEDS: Guaifenesin DM 100-10/5 ML UDCUP PO SCH ×3 (05:36→21:36)
[2020-11-18] MEDS: Fenofibrate Nanocrystallized 145 MG TAB PO SCH (08:23)
[2020-11-18] MEDS: Apixaban 5 MG TAB PO SCH ×2 (08:24→21:36)
[2020-11-18] MEDS: Multivit, Therapeutic 1 TAB PO SCH (08:24)
[2020-11-18] MEDS: Amlodipine 5 MG TAB PO SCH (08:24)
[2020-11-18] MEDS: Ascorbic Acid 500 mg Chewable Tablet PO SCH (08:24)
[2020-11-18] MEDS: Zinc Sulfate 220 MG CAP PO SCH (08:25)
[2020-11-18] MEDS: Lidocaine 5% Patch TD SCH (08:25)
[2020-11-18] MEDS: Dexamethasone 1 MG TAB PO SCH (08:25)
[2020-11-18] MEDS: guaiFENesin/Codeine 200 mg/20 mg 10 ml Cup PO PRN ×2 (08:41→16:05)
[2020-11-18] MEDS: Benzonatate 100 MG CAP PO SCH ×3 (10:03→21:37)
[2020-11-18] MEDS: Atorvastatin Calcium 40 MG TAB PO SCH (21:36)
[2020-11-18] MEDS: Transdermal Patch Removal TOP SCH (21:37)
[2020-11-19] MEDS: Albuterol 200 PUFF (6.7GM INHALER) INH SCH ×6 (02:20→21:04)
[2020-11-19] MEDS: Guaifenesin DM 100-10/5 ML UDCUP PO SCH ×3 (05:20→21:04)
[2020-11-19] MEDS: Zinc Sulfate 220 MG CAP PO SCH (08:31)
[2020-11-19] MEDS: Ascorbic Acid 500 mg Chewable Tablet PO SCH (08:31)
[2020-11-19] MEDS: Dexamethasone 1 MG TAB PO SCH (08:32)
[2020-11-19] MEDS: Fenofibrate Nanocrystallized 145 MG TAB PO SCH (08:32)
[2020-11-19] MEDS: Amlodipine 5 MG TAB PO SCH (08:32)
[2020-11-19] MEDS: Apixaban 5 MG TAB PO SCH ×2 (08:33→21:04)
[2020-11-19] MEDS: Multivit, Therapeutic 1 TAB PO SCH (08:33)
[2020-11-19] MEDS: Lidocaine 5% Patch TD SCH (08:33)
[2020-11-19] MEDS: Benzonatate 100 MG CAP PO SCH ×3 (08:34→21:04)
[2020-11-19] MEDS: guaiFENesin/Codeine 200 mg/20 mg 10 ml Cup PO PRN ×2 (08:55→17:36)
[2020-11-19] MEDS: Atorvastatin Calcium 40 MG TAB PO SCH (21:04)
[2020-11-19] MEDS: Transdermal Patch Removal TOP SCH (21:04)
[2020-11-20] MEDS: Albuterol 200 PUFF (6.7GM INHALER) INH SCH ×6 (02:28→21:01)
[2020-11-20] MEDS: Guaifenesin DM 100-10/5 ML UDCUP PO SCH ×3 (05:28→21:00)
[2020-11-20] MEDS: Ascorbic Acid 500 mg Chewable Tablet PO SCH (08:54)
[2020-11-20] MEDS: Zinc Sulfate 220 MG CAP PO SCH (08:55)
[2020-11-20] MEDS: Apixaban 5 MG TAB PO SCH ×2 (08:55→21:00)
[2020-11-20] MEDS: Fenofibrate Nanocrystallized 145 MG TAB PO SCH (08:55)
[2020-11-20] MEDS: Amlodipine 5 MG TAB PO SCH (08:55)
[2020-11-20] MEDS: Lidocaine 5% Patch TD SCH (08:56)
[2020-11-20] MEDS: Benzonatate 100 MG CAP PO SCH ×3 (08:56→21:01)
[2020-11-20] MEDS: Multivit, Therapeutic 1 TAB PO SCH (08:56)
[2020-11-20] MEDS: guaiFENesin/Codeine 200 mg/20 mg 10 ml Cup PO PRN ×2 (08:56→18:14)
[2020-11-20] MEDS: Dexamethasone 1 MG TAB PO SCH (08:58)
[2020-11-20] MEDS: Morphine 2 MG/ML VIAL SLOW IVP PRN (13:55)
[2020-11-20 14:40] LABS: Troponin I Less than 0.010 ng/mL (< 0.028)
[2020-11-20] MEDS: Atorvastatin Calcium 40 MG TAB PO SCH (21:00)
[2020-11-20] MEDS: Transdermal Patch Removal TOP SCH (21:01)
[2020-11-21] MEDS: guaiFENesin/Codeine 200 mg/20 mg 10 ml Cup PO PRN (01:33)
[2020-11-21] MEDS: Albuterol 200 PUFF (6.7GM INHALER) INH SCH ×6 (01:36→22:30)
[2020-11-21] MEDS: Guaifenesin DM 100-10/5 ML UDCUP PO SCH ×3 (05:15→21:12)
[2020-11-21] MEDS: Multivit, Therapeutic 1 TAB PO SCH ×2 (07:54→08:20)
[2020-11-21] MEDS: Ascorbic Acid 500 mg Chewable Tablet PO SCH (08:19)
[2020-11-21] MEDS: Amlodipine 5 MG TAB PO SCH (08:19)
[2020-11-21] MEDS: Fenofibrate Nanocrystallized 145 MG TAB PO SCH (08:19)
[2020-11-21] MEDS: Benzonatate 100 MG CAP PO SCH ×3 (08:19→21:13)
[2020-11-21] MEDS: Lidocaine 5% Patch TD SCH (08:20)
[2020-11-21] MEDS: Zinc Sulfate 220 MG CAP PO SCH (08:20)
[2020-11-21] MEDS: Apixaban 5 MG TAB PO SCH ×2 (10:26→21:13)
[2020-11-21] MEDS: Dexamethasone 1 MG TAB PO SCH (10:26)
[2020-11-21] MEDS: Transdermal Patch Removal TOP SCH (21:13)
[2020-11-21] MEDS: Atorvastatin Calcium 40 MG TAB PO SCH (21:13)
[2020-11-21] MEDS: Morphine 2 MG/ML VIAL SLOW IVP PRN (21:14)
[2020-11-22] MEDS: Albuterol 200 PUFF (6.7GM INHALER) INH SCH ×6 (02:30→22:52)
[2020-11-22] MEDS: Guaifenesin DM 100-10/5 ML UDCUP PO SCH ×3 (06:00→21:07)
[2020-11-22] MEDS: Zinc Sulfate 220 MG CAP PO SCH (08:36)
[2020-11-22] MEDS: Benzonatate 100 MG CAP PO SCH ×3 (08:36→20:59)
[2020-11-22] MEDS: Fenofibrate Nanocrystallized 145 MG TAB PO SCH (08:36)
[2020-11-22] MEDS: Ascorbic Acid 500 mg Chewable Tablet PO SCH (08:36)
[2020-11-22] MEDS: Apixaban 5 MG TAB PO SCH ×2 (08:37→20:59)
[2020-11-22] MEDS: Lidocaine 5% Patch TD SCH (08:37)
[2020-11-22] MEDS: Multivit, Therapeutic 1 TAB PO SCH (08:37)
[2020-11-22] MEDS: Amlodipine 5 MG TAB PO SCH (08:37)
[2020-11-22] MEDS: Dexamethasone 1 MG TAB PO SCH (08:39)
[2020-11-22] MEDS: Atorvastatin Calcium 40 MG TAB PO SCH (20:59)
[2020-11-22] MEDS: Transdermal Patch Removal TOP SCH (20:59)
[2020-11-23] MEDS: Albuterol 200 PUFF (6.7GM INHALER) INH SCH ×6 (03:46→21:10)
[2020-11-23] MEDS: HYDROcodone/Acetaminophen 5/325 mg Tablet PO PRN ×4 (03:50→21:09)
[2020-11-23] MEDS: Guaifenesin DM 100-10/5 ML UDCUP PO SCH ×3 (05:45→21:08)
[2020-11-23 09:00] LABS: ALT (SGPT) 41 U/L (8-55); AST (SGOT) 30 U/L (5-34); Albumin 3.2 g/dL (3.5-5.0); Alkaline Phosphatase 82 U/L (40-110); Anion Gap 14 mmol/L (10-20); BUN (Urea Nitrogen) 14 mg/dL (8.4-25.7); Bilirubin, Total 0.5 mg/dL (0.2-1.2); Calc. Creatinine Clearance 148 mL/min (70-130); Calcium 9.1 mg/dL (7.8-10.44); Carbon Dioxide 24 mmol/L (22-29); Chloride 101 mmol/L (98-107); Glucose 85 mg/dL (70-105); Potassium 4.6 mmol/L (3.5-5.1); Protein, Total 7.2 g/dL (6.0-8.3); Sodium 134 mmol/L (136-145)
[2020-11-23 09:02] LABS: Mean Corpuscular HGB CONC 31.9 g/dL (32.0-36.0); Mean Corpuscular Hemoglobin 28.7 pg (27.0-31.0); Mean Corpuscular Volume 89.8 fL (78.0-98.0); Mean Platelet Volume 7.2 fL (7.4-10.4); Platelet Count 294 thou/uL (130-400); RBC Distribution Width 15.6 % (11.5-14.5); Red Blood Cell (RBC) Count 4.53 mill/uL (4.70-6.10); White Blood Cell (WBC) Count 12.3 thou/uL (4.8-10.8)
[2020-11-23] MEDS: Dexamethasone 1 MG TAB PO SCH (09:13)
[2020-11-23] MEDS: Amlodipine 5 MG TAB PO SCH (09:14)
[2020-11-23] MEDS: Ascorbic Acid 500 mg Chewable Tablet PO SCH (09:14)
[2020-11-23] MEDS: Zinc Sulfate 220 MG CAP PO SCH (09:14)
[2020-11-23] MEDS: Fenofibrate Nanocrystallized 145 MG TAB PO SCH (09:14)
[2020-11-23] MEDS: Lidocaine 5% Patch TD SCH (09:14)
[2020-11-23] MEDS: Apixaban 5 MG TAB PO SCH ×2 (09:14→21:07)
[2020-11-23] MEDS: Benzonatate 100 MG CAP PO SCH ×3 (09:22→21:08)
[2020-11-23 11:16] LABS: Anisocytosis SLIGHT = 6-15 cells (100X) (0-5/hpf); Band 4 % (5-11); Eosinophils 2 % (0-10); Large Platelets SLIGHT; Lymphocytes 26 % (21-51); MDiff Complete? YES; Monocytes 18 % (0-10); Neutrophil 48 % (42-75); Platelet Morphology Comment Appears Adequate; Polychromasia SLIGHT = 2-3 cells (100X) (0-2/hpf); Vacuoles SLIGHT
[2020-11-23] MEDS: Atorvastatin Calcium 40 MG TAB PO SCH (21:08)
[2020-11-23] MEDS: Transdermal Patch Removal TOP SCH (21:09)
[2020-11-24] MEDS: Albuterol 200 PUFF (6.7GM INHALER) INH SCH ×5 (02:59→14:52)
[2020-11-24] MEDS: Guaifenesin DM 100-10/5 ML UDCUP PO SCH ×3 (06:17→22:16)
[2020-11-24] MEDS: Ascorbic Acid 500 mg Chewable Tablet PO SCH (08:22)
[2020-11-24] MEDS: Fenofibrate Nanocrystallized 145 MG TAB PO SCH (08:22)
[2020-11-24] MEDS: Zinc Sulfate 220 MG CAP PO SCH (08:22)
[2020-11-24] MEDS: Apixaban 5 MG TAB PO SCH ×2 (08:22→20:24)
[2020-11-24] MEDS: Dexamethasone 1 MG TAB PO SCH (08:22)
[2020-11-24] MEDS: Amlodipine 5 MG TAB PO SCH (08:22)
[2020-11-24] MEDS: Benzonatate 100 MG CAP PO SCH ×3 (08:22→20:23)
[2020-11-24] MEDS: Multivit, Therapeutic 1 TAB PO SCH (08:22)
[2020-11-24] MEDS: Lidocaine 5% Patch TD SCH (09:32)
[2020-11-24] MEDS: HYDROcodone/Acetaminophen 5/325 mg Tablet PO PRN ×2 (10:48→23:34)
[2020-11-24] MEDS: Atorvastatin Calcium 40 MG TAB PO SCH (20:22)
[2020-11-24] MEDS: Transdermal Patch Removal TOP SCH (20:24)
[2020-11-25] MEDS: Albuterol 200 PUFF (6.7GM INHALER) INH SCH ×4 (01:17→13:43)
[2020-11-25] MEDS: Guaifenesin DM 100-10/5 ML UDCUP PO SCH ×2 (06:20→14:00)
[2020-11-25] MEDS: Lidocaine 5% Patch TD SCH (09:21)
[2020-11-25] MEDS: Fenofibrate Nanocrystallized 145 MG TAB PO SCH (09:21)
[2020-11-25] MEDS: Zinc Sulfate 220 MG CAP PO SCH (09:21)
[2020-11-25] MEDS: Apixaban 5 MG TAB PO SCH (09:21)
[2020-11-25] MEDS: Ascorbic Acid 500 mg Chewable Tablet PO SCH (09:21)
[2020-11-25] MEDS: Multivit, Therapeutic 1 TAB PO SCH (09:21)
[2020-11-25] MEDS: Amlodipine 5 MG TAB PO SCH (09:21)
[2020-11-25] MEDS: Benzonatate 100 MG CAP PO SCH ×2 (09:23→13:59)
[2020-11-25] MEDS: Dexamethasone 1 MG TAB PO SCH (09:23)
[2020-11-25] MEDS: guaiFENesin/Codeine 200 mg/20 mg 10 ml Cup PO PRN (13:59)
[2020-11-25 14:12] VITALS: BP 131/84; TEMP 97.5
== END 2020-11-25 15:41 | DRG 871 ==
LOC: ERS 09:29 → ERHOLD 12:04 → 2SW 17:59 → CCU 10-22 12:46 → IMCU/EMU 11-03 16:11 → 2SW 11-09 21:16
PROVIDERS: ADMIT Internal Medicine; ATTEND Internal Medicine
PROC: 8E0ZXY6 Isolation (ICD-10-PCS; principal; 2020-10-14)
PROC: 3E0333Z Introduction of Anti-inflammatory into Peripheral Vein, Percutaneous Approach (ICD-10-PCS; 2020-10-14)
PROC: 5A09457 Assistance with Respiratory Ventilation, 24-96 Consecutive Hours, Continuous Positive Airway Pressure (ICD-10-PCS; 2020-10-22)
DX: A41.89 Other specified sepsis (principal); U07.1 COVID-19; J12.82 Pneumonia due to coronavirus disease 2019; J96.01 Acute respiratory failure with hypoxia; I26.99 Other pulmonary embolism without acute cor pulmonale; E78.5 Hyperlipidemia, unspecified; E78.00 Pure hypercholesterolemia, unspecified; I10 Essential (primary) hypertension; M10.9 Gout, unspecified; F17.210 Nicotine dependence, cigarettes, uncomplicated; E66.9 Obesity, unspecified; F41.9 Anxiety disorder, unspecified; Z91.14 Patient's other noncompliance with medication regimen; Z68.30 Body mass index [BMI] 30.0-30.9, adult; Z79.899 Other long term (current) drug therapy
CPT/HCPCS: 36415; 36600; 71045; 71275; 80048; 80053; 82728; 82805; 83735; 83880; 84100; 84145; 84484; 85025; 85379; 86140; 93005; 93010; 93970; 94660; 94760; 96374; J0360; J0696; J1100; J1650; J1885; J1940; J2270; J3475; J3490; J8540; Q9967

== ENCOUNTER 2020-11-29 20:24 | Inpatient (IN) | payer SELFPAY ==
[~2020-11-29 20:24] MED LIST: Iopamidol-370 76% 500 ML 1 ML ONE
[2020-11-29] MEDS ORDERED: PROVENTIL INHALER 6.7 G (200 INHALATIONS) ONE (21:14)
[2020-11-29 21:24] LABS: #Basophils 0.1 thou/uL (0.0-0.2); #Eosinphils 0.2 thou/uL (0.0-0.7); #Lymphocytes 2.7 thou/uL (1.20-3.40); #Monocytes 0.8 thou/uL (0.11-0.59); #Neutrophils 9.9 thou/uL (1.40-6.50); %Basophils 0.4 % (0.0-1.0); %Eosinophils 1.2 % (0.0-10.0); %Lymphocytes 19.8 % (21.0-51.0); %Monocytes 5.7 % (0.0-10.0); %Neutrophils 72.9 % (42.0-75.0); Hemoglobin 13.1 g/dL (14.0-18.0); Mean Corpuscular Hemoglobin 28.4 pg (27.0-31.0); Mean Corpuscular Volume 88.9 fL (78.0-98.0); Mean Platelet Volume 7.2 fL (7.4-10.4); Platelet Count 289 thou/uL (130-400); White Blood Cell (WBC) Count 13.5 thou/uL (4.8-10.8)
[2020-11-29] MEDS ORDERED: Albuterol 200 PUFF (6.7GM INHALER) ONE (21:30)
[2020-11-29 21:32] LABS: Actual Bicarbonate (HCO3a) 21.8 mEq/L (22-28); Analyzer IN Cardio ER; Base Excess (BEa) -1.3 mEq/L (-2.0 to +3.0); CO2 Tension 31.6 mmHg (35.0-45.0); Calcium, Ionized (arterial) 1.17 mmol/L (1.12-1.30); Hemoglobin (Hb) 12.6 g/dL (14.0-18.0); O2 Tension (PaO2), arterial 65.5 mmHg (80.0-100.0); Potassium - ABG Lab 3.53 mmol/L (3.70-5.30); pH, Arterial 7.46 (7.35-7.45)
[2020-11-29] MEDS ORDERED: Lidocaine 1% w/Epinephrine 1:100K 20 ML VIAL ONE ×2 (21:33→21:38)
[2020-11-29 21:36] LABS: Puncture Site RRA
[2020-11-29 21:37] LABS: Lactic Acid 1.2 mmol/L (0.5-2.2)
[2020-11-29 21:41] LABS: ALT (SGPT) 34 U/L (8-55); AST (SGOT) 23 U/L (5-34); Albumin 3.4 g/dL (3.5-5.0); Alkaline Phosphatase 94 U/L (40-110); Anion Gap 13 mmol/L (10-20); BUN (Urea Nitrogen) 12 mg/dL (8.4-25.7); Bilirubin, Total 0.6 mg/dL (0.2-1.2); CRP (Inflammatory) 6.85 mg/dL (= or < 0.5); Calc. Creatinine Clearance 0 mL/min (70-130); Calcium 9.1 mg/dL (7.8-10.44); Carbon Dioxide 25 mmol/L (22-29); Chloride 101 mmol/L (98-107); Globulin 3.5 g/dL (2.4-3.5); Glucose 131 mg/dL (70-105); Potassium 4.1 mmol/L (3.5-5.1); Protein, Total 6.9 g/dL (6.0-8.3); Sodium 135 mmol/L (136-145)
[2020-11-29] MEDS ORDERED: Ondansetron PF 4 MG/2 ML Vial ONE (21:56)
[2020-11-29] MEDS ORDERED: Morphine 4 MG/ML VIAL ONE (21:56)
[2020-11-29] MEDS ORDERED: CEFAZOLIN 1 GM VIAL ONE (22:06)
[2020-11-29 22:17] LABS: INR-International Normal Ratio 1.3; PTT 41.1 sec (22.9-36.1); Prothrombin Time 16.1 sec (12.0-14.7)
[2020-11-29] MEDS ORDERED: Cefepime 2 GM VIAL ONE (22:35)
[2020-11-29] MEDS ORDERED: Vancomycin 1 GM/200 ML BAG ONE (22:35)
[2020-11-29] MEDS ORDERED: Acetaminophen 325 MG TAB PO PRN (23:28)
[2020-11-29] MEDS ORDERED: Ondansetron ODT 4 MG TAB PO PRN (23:28)
[2020-11-29] MEDS ORDERED: Acetaminophen 650 MG Suppository PR PRN (23:28)
[2020-11-29] MEDS ORDERED: Ondansetron PF 4 MG/2 ML Vial IVP PRN (23:33)
[2020-11-30 05:19] LABS: Anion Gap 13 mmol/L (10-20); BUN (Urea Nitrogen) 10 mg/dL (8.4-25.7); Calc. Creatinine Clearance 155 mL/min (70-130); Calcium 8.7 mg/dL (7.8-10.44); Carbon Dioxide 23 mmol/L (22-29); Chloride 102 mmol/L (98-107); Glucose 159 mg/dL (70-105); Potassium 4.3 mmol/L (3.5-5.1); Sodium 134 mmol/L (136-145)
[2020-11-30 06:59] LABS: Anisocytosis SLIGHT = 6-15 cells (100X) (0-5/hpf); Band 19 % (5-11); Hemoglobin 10.9 g/dL (14.0-18.0); Lymphocytes 12 % (21-51); MDiff Complete? YES; Mean Corpuscular HGB CONC 27.6 g/dL (32.0-36.0); Mean Corpuscular Hemoglobin 24.8 pg (27.0-31.0); Mean Corpuscular Volume 89.6 fL (78.0-98.0); Mean Platelet Volume 7.4 fL (7.4-10.4); Monocytes 1 % (0-10); Neutrophil 68 % (42-75); Platelet Count 272 thou/uL (130-400); RBC Distribution Width 16.2 % (11.5-14.5); Red Blood Cell (RBC) Count 4.39 mill/uL (4.70-6.10); White Blood Cell (WBC) Count 12.2 thou/uL (4.8-10.8)
[2020-11-30 07:18] VITALS: BMI 29.5
[2020-11-30] MEDS: Apixaban 5 MG TAB PO SCH ×2 (09:05→20:21)
[2020-11-30] MEDS ORDERED: Doxepin HCl 10 MG CAP PO PRN (10:47)
[2020-11-30] MEDS ORDERED: HYDROcodone/Acetaminophen 10/325 mg Tablet PO PRN (10:52)
[2020-11-30] MEDS: Benzonatate 100 MG CAP PO PRN (22:09)
[2020-12-01 04:20] LABS: #Eosinphils 0.2 thou/uL (0.0-0.7); #Lymphocytes 1.7 thou/uL (1.20-3.40); #Monocytes 0.9 thou/uL (0.11-0.59); #Neutrophils 11.1 thou/uL (1.40-6.50); %Basophils 0.2 % (0.0-1.0); %Eosinophils 1.1 % (0.0-10.0); %Lymphocytes 12.3 % (21.0-51.0); %Monocytes 6.3 % (0.0-10.0); %Neutrophils 80.1 % (42.0-75.0); Hemoglobin 11.8 g/dL (14.0-18.0); Mean Corpuscular HGB CONC 31.5 g/dL (32.0-36.0); Mean Corpuscular Hemoglobin 28.5 pg (27.0-31.0); Mean Corpuscular Volume 90.6 fL (78.0-98.0); Mean Platelet Volume 7.2 fL (7.4-10.4); Platelet Count 259 thou/uL (130-400); RBC Distribution Width 16.3 % (11.5-14.5); Red Blood Cell (RBC) Count 4.15 mill/uL (4.70-6.10); White Blood Cell (WBC) Count 13.9 thou/uL (4.8-10.8)
[2020-12-01 04:38] LABS: Anion Gap 9 mmol/L (10-20); BUN (Urea Nitrogen) 16 mg/dL (8.4-25.7); Calc. Creatinine Clearance 150 mL/min (70-130); Calcium 8.9 mg/dL (7.8-10.44); Carbon Dioxide 28 mmol/L (22-29); Chloride 106 mmol/L (98-107); Glucose 134 mg/dL (70-105); Potassium 3.7 mmol/L (3.5-5.1); Sodium 139 mmol/L (136-145)
[2020-12-01] MEDS: Multivit, Therapeutic 1 TAB PO SCH (09:08)
[2020-12-01] MEDS: Amlodipine 5 MG TAB PO SCH (09:08)
[2020-12-01] MEDS: Apixaban 5 MG TAB PO SCH ×2 (09:08→19:54)
[2020-12-01] MEDS: Benzonatate 100 MG CAP PO PRN (19:54)
[2020-12-02] MEDS: Benzonatate 100 MG CAP PO PRN ×3 (01:23→20:24)
[2020-12-02 04:40] LABS: #Eosinphils 0.3 thou/uL (0.0-0.7); #Lymphocytes 2.1 thou/uL (1.20-3.40); #Monocytes 0.7 thou/uL (0.11-0.59); #Neutrophils 6.7 thou/uL (1.40-6.50); %Basophils 0.1 % (0.0-1.0); %Eosinophils 3.5 % (0.0-10.0); %Monocytes 7.5 % (0.0-10.0); %Neutrophils 67.9 % (42.0-75.0); Hemoglobin 11.7 g/dL (14.0-18.0); Mean Corpuscular HGB CONC 30.4 g/dL (32.0-36.0); Mean Corpuscular Hemoglobin 27.7 pg (27.0-31.0); Mean Corpuscular Volume 91.1 fL (78.0-98.0); Platelet Count 305 thou/uL (130-400); RBC Distribution Width 16.4 % (11.5-14.5); Red Blood Cell (RBC) Count 4.22 mill/uL (4.70-6.10); White Blood Cell (WBC) Count 9.8 thou/uL (4.8-10.8)
[2020-12-02 04:58] LABS: Anion Gap 11 mmol/L (10-20); BUN (Urea Nitrogen) 13 mg/dL (8.4-25.7); Calc. Creatinine Clearance 140 mL/min (70-130); Carbon Dioxide 29 mmol/L (22-29); Chloride 101 mmol/L (98-107); Glucose 82 mg/dL (70-105); Potassium 3.9 mmol/L (3.5-5.1); Sodium 137 mmol/L (136-145)
[2020-12-02] MEDS: Amlodipine 5 MG TAB PO SCH (10:24)
[2020-12-02] MEDS: Multivit, Therapeutic 1 TAB PO SCH (10:25)
[2020-12-02] MEDS: Apixaban 5 MG TAB PO SCH ×2 (10:25→20:24)
[2020-12-03] MEDS: Benzonatate 100 MG CAP PO PRN ×4 (00:22→21:28)
[2020-12-03] MEDS: Amlodipine 5 MG TAB PO SCH (09:07)
[2020-12-03] MEDS: Apixaban 5 MG TAB PO SCH ×2 (09:07→20:17)
[2020-12-03] MEDS: Multivit, Therapeutic 1 TAB PO SCH (09:07)
[2020-12-04] MEDS: Benzonatate 100 MG CAP PO PRN (08:48)
[2020-12-04] MEDS: Apixaban 5 MG TAB PO SCH ×2 (08:48→20:18)
[2020-12-04] MEDS: Multivit, Therapeutic 1 TAB PO SCH (08:48)
[2020-12-04] MEDS: Amlodipine 5 MG TAB PO SCH (08:48)
[2020-12-04 09:54] LABS: #Eosinphils 0.4 thou/uL (0.0-0.7); #Lymphocytes 2.3 thou/uL (1.20-3.40); #Monocytes 0.8 thou/uL (0.11-0.59); %Basophils 0.4 % (0.0-1.0); %Eosinophils 3.8 % (0.0-10.0); %Lymphocytes 21.6 % (21.0-51.0); %Monocytes 7.5 % (0.0-10.0); %Neutrophils 66.7 % (42.0-75.0); Hemoglobin 12.2 g/dL (14.0-18.0); Mean Corpuscular Hemoglobin 27.9 pg (27.0-31.0); Mean Corpuscular Volume 87.3 fL (78.0-98.0); Mean Platelet Volume 6.8 fL (7.4-10.4); Platelet Count 328 thou/uL (130-400); Red Blood Cell (RBC) Count 4.35 mill/uL (4.70-6.10); White Blood Cell (WBC) Count 10.6 thou/uL (4.8-10.8)
[2020-12-04 10:13] LABS: Anion Gap 10 mmol/L (10-20); BUN (Urea Nitrogen) 8 mg/dL (8.4-25.7); Calc. Creatinine Clearance 147 mL/min (70-130); Carbon Dioxide 28 mmol/L (22-29); Chloride 101 mmol/L (98-107); Glucose 118 mg/dL (70-105); Magnesium 1.8 mg/dL (1.6-2.6); Phosphorus 2.6 mg/dL (2.3-4.7); Potassium 3.6 mmol/L (3.5-5.1); Sodium 135 mmol/L (136-145)
[2020-12-04] MEDS ORDERED: Colchicine 0.6 MG TAB PO SCH (10:15)
[2020-12-04] MEDS ORDERED: Potassium Chloride 20 MEQ TAB PO SCH ×2 (10:30→17:00)
[2020-12-04] MEDS ORDERED: Magnesium 2 GM/50 ML 2 GM in Premix Bag 1 BAG IVPB SCH (10:45)
[2020-12-05] MEDS: Apixaban 5 MG TAB PO SCH (08:00)
[2020-12-05] MEDS: Multivit, Therapeutic 1 TAB PO SCH (08:00)
[2020-12-05] MEDS: Amlodipine 5 MG TAB PO SCH (08:00)
[2020-12-05] MEDS ORDERED: Colchicine 0.6 MG TAB PO SCH ×4 (11:45→21:00)
[2020-12-05 19:08] VITALS: BP 124/86; TEMP 98.6
== END 2020-12-05 18:40 | disposition home or self-care (01) | DRG 177 ==
LOC: ERS 20:24 → ERHOLD 22:22 → IMCU/EMU 11-30 04:51 → ERHOLD 12-03 10:29 → 2SE 12-03 10:32 → T4-A 12-04 18:14
PROVIDERS: ADMIT Student in an Organized Health Care Education/Training Program; ATTEND Internal Medicine
PROC: 0W9930Z Drainage of Right Pleural Cavity with Drainage Device, Percutaneous Approach (ICD-10-PCS; principal; 2020-11-29)
PROC: 8E0ZXY6 Isolation (ICD-10-PCS; 2020-11-29)
DX: U07.1 COVID-19 (principal); J12.82 Pneumonia due to coronavirus disease 2019; J96.21 Acute and chronic respiratory failure with hypoxia; J93.83 Other pneumothorax; E87.1 Hypo-osmolality and hyponatremia; E78.5 Hyperlipidemia, unspecified; E78.00 Pure hypercholesterolemia, unspecified; I10 Essential (primary) hypertension; M10.9 Gout, unspecified; F17.210 Nicotine dependence, cigarettes, uncomplicated; E83.42 Hypomagnesemia; D63.8 Anemia in other chronic diseases classified elsewhere; Z86.711 Personal history of pulmonary embolism; Z79.899 Other long term (current) drug therapy; Z79.01 Long term (current) use of anticoagulants
CPT/HCPCS: 36415; 36600; 71045; 71275; 80048; 80053; 82805; 83605; 83735; 83880; 84100; 84484; 85025; 85610; 85730; 86140; 87040; 93306; 96365; 96374; 96375; J0690; J0692; J2270; J2405; J3370; J3475; Q9967

== ENCOUNTER 2024-01-11 11:10 | Inpatient (IN) | payer OTHER ==
[2024-01-10 11:20] VITALS: BMI 40.3
[2024-01-16] MEDS ORDERED: Lidocaine 1% (PF) 30 ML VIAL ONE (12:34)
[2024-01-16] MEDS ORDERED: CEFAZOLIN 2 GM VIAL ONE (12:38)
[2024-01-16] MEDS ORDERED: fentaNYL PF 100 MCG/2 ML SYRINGE ONE (12:51)
[2024-01-16] MEDS ORDERED: Midazolam HCl 2 mg/2 ml Vial ONE (12:51)
[2024-01-16] MEDS ORDERED: PROPOFOL 20 ML ONE ×2 (12:51→13:37)
[2024-01-16] MEDS ORDERED: Lidocaine 1% PF 5 ML VIAL ONE (12:54)
[2024-01-16] MEDS ORDERED: Ketamine In 0.9 % NaCl 50 MG/5 ML SYRINGE ONE (13:15)
[2024-01-16] MEDS ORDERED: Dexamethasone 20 MG/5 ML VIAL ONE (13:20)
[2024-01-16] MEDS ORDERED: Ondansetron PF 4 MG/2 ML Vial ONE (13:20)
[2024-01-16] MEDS ORDERED: PHENYLEPHRINE-NS 100 MCG/ML 10 ML SYRINGE ONE (14:36)
[2024-01-16] MEDS ORDERED: fentaNYL 50 mcg/mL 1 mL Vial ONE ×3 (15:01→16:19)
[2024-01-16] MEDS ORDERED: HYDROcodone/Acetaminophen 10/325 mg Tablet PO PRN (15:48)
[2024-01-16] MEDS ORDERED: Communication Order-Pharmacy FS SCH (16:00)
[2024-01-16] MEDS ORDERED: Labetalol HCl 100 MG/20 ML VIAL ONE (16:19)
[2024-01-16] MEDS ORDERED: Ketorolac Tromethamine 30 MG (1 mL) VIAL ONE (16:23)
[2024-01-16] MEDS: Morphine 2 MG/ML VIAL SLOW IVP PRN (17:35)
[2024-01-16] MEDS: HYDROcodone/Acetaminophen 10/325 mg Tablet PO PRN (17:59)
[2024-01-16] MEDS: CEFAZOLIN 2 GM in Sodium Chloride 0.9% 100 ML IVPB SCH (20:31)
[2024-01-16] MEDS: Aspirin 81 mg Enteric Coated Tablet PO SCH (20:32)
[2024-01-17] MEDS: CEFAZOLIN 2 GM VIAL ONE (04:27)
[2024-01-17 05:01] LABS: #Basophils Less than 0.03 10x3/uL (0.0-0.2); #Eosinophils Less than 0.03 10x3/uL (0.0-0.7); %Basophils 0.1 % (0.0-1.0); %Lymphocytes 9.2 % (21.0-51.0); %Neutrophils 84.1 % (42.0-75.0); Hematocrit 41.5 % (42.0-52.0); Hemoglobin 13.7 g/dL (14.0-18.0); Mean Corpuscular Hemoglobin 29.7 pg (27.0-31.0); Mean Platelet Volume 10.5 fL (7.4-10.4); Platelet Count 253 10x3/uL (130-400); RBC Distribution Width 14.8 % (11.5-14.5); Red Blood Cell (RBC) Count 4.61 mill/uL (4.70-6.10)
[2024-01-17 15:49] VITALS: BP 109/72; TEMP 97.8
== END 2024-01-17 17:55 | disposition home or self-care (01) | DRG 481 ==
LOC: EDSTATUS 15:27 → SURG A 01-16 10:14 → SURG B 01-16 17:42
PROVIDERS: ADMIT Orthopaedic Surgery; ATTEND Orthopaedic Surgery
PROC: 0QSB06Z Reposition Right Lower Femur with Intramedullary Internal Fixation Device, Open Approach (ICD-10-PCS; principal; 2024-01-16)
PROC: 0QPB04Z Removal of Internal Fixation Device from Right Lower Femur, Open Approach (ICD-10-PCS; 2024-01-16)
DX: S72.401K Unspecified fracture of lower end of right femur, subsequent encounter for closed fracture with nonunion (principal); T84.114A Breakdown (mechanical) of internal fixation device of right femur, initial encounter; I10 Essential (primary) hypertension; M10.9 Gout, unspecified; E78.1 Pure hyperglyceridemia; Z98.890 Other specified postprocedural states; Z82.49 Family history of ischemic heart disease and other diseases of the circulatory system; Z83.3 Family history of diabetes mellitus; Z79.899 Other long term (current) drug therapy
CPT/HCPCS: 36415; 85025; C1713; J1100; J1885; J2250; J2272; J2405; J2704; J3010; J3490

== ENCOUNTER 2024-03-08 09:25 | Outpatient (CLI) | payer OTHER | END 2024-03-08 09:26 | disposition home or self-care (01) | LOC: BICRAD 09:25 | PROVIDERS: ATTEND Orthopaedic Surgery | DX: S72.451D Displaced supracondylar fracture without intracondylar extension of lower end of right femur, subsequent encounter for closed fracture with routine healing (principal); S72.001D Fracture of unspecified part of neck of right femur, subsequent encounter for closed fracture with routine healing; Z98.890 Other specified postprocedural states ==